=== PATIENT | female | born 1975 | race African-American/Black ===

== ENCOUNTER 2024-09-30 10:15 | Inpatient (IN) | payer MEDICAID ==
[~2024-09-30] VITALS: Ht 154.9 cm; Wt 80.0 kg
--- NOTE | 2024-09-30 10:45 | ECG ---
[facility] Test Date: 2024-09-30 Test Time: 10:44:47 Pat Name: KATY MIKE Department: er Room: [address] [place] [address] Gender: F Moto Mix Operator: gp : 1975 Requested By: EMILY VALDEZ Order Number: [id number] Reading MD: Familia Lopez Measurements Intervals [place] Rate: 106 P: 63 AL: 97 QRS: 58 QRSD: 73 T: -18 QT: 351 QTc: 467 Interpretive Statements Sinus tachycardia Borderline repolarization abnormality Electronically Signed On 10-03-2024 17:22:14 PST by Familia Lopez Please click the below link to view image of tracing.
--- NOTE | 2024-09-30 10:51 | ED.PDOC ---
History of Present Illness HPI Comments 48-year-old female presents with a chief complaint of blurred vision, tingling, and hypertension x 3 days. Patient states that her BP was 174/129 at home and after not taking her HTN medication for x 3 years decided to take them after the onset of her symptoms. Patient mentions that she has been feeling jittery, tingling in her hands and eyes, and her vision has been somewhat blurred. Patient denies any headache or lightheadedness. BP in triage was 167/107. 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 Family History Family History: Reviewed,noncontributory to illness Social History Smoker: Non-Smoker Alcohol: Denies ETOH Use Drugs: Denies Drug Use Constitutional: denies: chills, diaphoresis, fatigue, fever, malaise, sweats, weakness, others EENTM: reports: blurred vision; denies: double vision, ear bleeding, ear discharge, ear drainage, ear pain, ear ringing, eye pain, eye redness, hearing loss, mouth pain, mouth swelling, nasal discharge, nose bleeding, nose congestion, nose pain, photophobia, tearing, throat pain, throat swelling, voice changes, others Respiratory: denies: cough, hemoptysis, orthopnea, SOB at rest, shortness of breath, SOB with excertion, stridor, wheezing, others Cardiovascular: denies: chest pain, dizzy spells, diaphoresis, Dyspnea on exertion, edema, irregular heart beat, left arm pain, lightheadedness, palpitations, PND, syncope, others Gastrointestinal: denies: abdomen distended, abdominal pain, blood streaked bowels, constipated, diarrhea, dysphagia, difficulty swallowing, hematemesis, melena, nausea, poor appetite, poor fluid intake, rectal bleeding, rectal pain, vomiting, others Genitourinary: denies: abnormal vagina bleeding, burning, dyspareunia, dysuria, flank pain, frequency, hematuria, incontinence, pain, , vagina discharge, urgency, others Neurological: reports: tingling; denies: dizziness, fainting, headache, left sided numbness, left sided weakness, numbness, paresthesia, pre-existing deficit, right sided numbness, right sided weakness, seizure, speech problems, tremors, weakness, others Musculoskeletal: denies: back pain, gout, joint pain, joint swelling, muscle pain, muscle stiffness, neck pain, others Integumetry: denies: bruises, change in color, change in hair/nails, dryness, laceration, lesions, lumps, rash, wounds, others Allergic/Immunocompromised: denies: Difficulty Healing, Frequent Infections, Hives, Itching, others Hematologic/Lymphatic: denies: anemia, blood clots, easy bleeding, easy bruising, swollen glands, others Endocrine: denies: excessive hunger, excessive sweating, excessive thirst, excessive urination, flushing, intolerance to cold, intolerance to heat, unexplained weight gain, unexplained weight loss, others Psychiatric: denies: anxiety, bipolar disorder, depression, hopeless, panic disorder, schizophrenia, sleepless, suicidal, others All Other Systems: Reviewed and Negative Physical Exam General Appearance: No Apparent Distress, Normal HEENT: Normal ENT Inspection, Pharynx Normal, TMs Normal Neck: Full Range of Motion, Non-Tender, Normal, Normal Inspection Respiratory: Chest Non-Tender, Lungs Clear, No Accessory Muscle Use, No Respiratory Distress, Normal Breath Sounds Cardiovascular: No Edema, No JVD, No Murmur, No Gallop, Normal Peripheral Pulses, Regular Rate/Rhythm Breast Exam: Deferred Gastrointestinal: No Organomegaly, Non Tender, No Pulsatile Mass, Normal Bowel Sounds, Soft Genitalia: Deferred Pelvic: Deferred Rectal: Deferred Extremities: No calf tenderness, Normal capillary refill, Normal inspection, Normal range of motion, Non-tender, No pedal edema Musculoskeletal : Apperance: Normal Neurologic: Alert, senior oracle pl sql developer II-XII nml as Tested, No Motor Deficits, Normal Affect, Normal Mood, No Sensory Deficits Cerebellar Function: Normal Reflexes: Normal Skin: Dry, Normal Color, Warm Lymphatic: No Adenopathy Was a procedure done? Was a procedure done?: No Differential Dx Considerations may include: Hypertensive urgency, ACS, electrolyte abnormality, urinary tract infection, hypertensive urgency X-Ray, Labs, Meds, VS Vital Signs Date Time Temp Pulse Resp B/P (MAP) Pulse Ox O2 Delivery O2 Flow Rate FiO2 09/30/24 12:15 98.2 101 17 139/100 (113) 100 98.2 09/30/24 11:30 17 Room Air* 0 21 09/30/24 10:44 106 09/30/24 10:30 98.3 99 18 167/107 (127) 97 167/107 (127) Lab Test 09/30/24 11:48 09/30/24 10:50 09/30/24 10:38 Range/Units Troponin I High Sensitivity < 3 L < 3 L </=34 ng/L White Blood Count 4.8 4.4-10.8 10^3/uL Red Blood Count 4.20 4.0-5.20 10^6/uL Hemoglobin 11.9 L 12.2-16.2 g/dL Hematocrit 36.6 36.0-46.0 % Mean Corpuscular Volume 87.2 80.0-100.0 fL Mean Corpuscular Hemoglobin 28.3 28.0-32.0 pg Mean Corpuscular Hemoglobin Concent 32.5 32.0-36.0 g/dL Red Cell Distribution Width 17.0 H 11.8-14.3 % Platelet Count 412 140-450 10^3/uL Mean Platelet Volume 6.9 6.9-10.8 fL Neutrophils (%) (Auto) 51.0 37.0-80.0 % Lymphocytes (%) (Auto) 30.3 10.0-50.0 % Monocytes (%) (Auto) 12.6 H 0.0-12.0 % Eosinophils (%) (Auto) 4.7 0.0-7.0 % Basophils (%) (Auto) 1.4 0.0-2.0 % Neutrophils # (Auto) 2.5 1.6-8.6 10 ^3/uL Lymphocytes # (Auto) 1.5 0.4-5.4 10 ^3/uL Monocytes # (Auto) 0.6 0-1.3 10 ^3/uL Eosinophils # (Auto) 0.2 0-0.8 10 ^3/uL Basophils # (Auto) 0.1 0-0.2 10 ^3/uL Nucleated Red Blood Cells 0.2 % Sodium Level 138 136-145 mmol/L Potassium Level 4.0 3.5-5.1 mmol/L Chloride Level 104 98-107 mmol/L Carbon Dioxide Level 26 20-31 mmol/L Anion Gap 8 5-15 Blood Urea Nitrogen 10 9-23 mg/dL Creatinine 0.86 0.550-1.02 mg/dL Glomerular Filtration Rate Calc 84 >90 mL/min BUN/Creatinine Ratio 11.6 10.0-20.0 Serum Glucose 103 74-106 mg/dL Calcium Level 9.9 8.7-10.4 mg/dL Magnesium Level 2.0 1.6-2.6 mg/dL Urine Color Colorless Yellow Urine Clarity Turbid H Clear Urine pH 6.0 5.0-9.0 Urine Specific [place] 1.013 1.001-1.035 Urine Protein Negative Negative Urine Ketones Negative Negative Urine Blood Negative Negative /uL Urine Nitrite Negative Negative Urine Bilirubin Negative Negative Urine Urobilinogen Normal Negative mg/dL Urine Leukocyte Esterase Negative Negative /uL Urine RBC 1 0 - 4 /hpf Urine WBC 3 0 - 5 /hpf Urine Squamous Epithelial Cells Few <5 /hpf Urine Bacteria Few H None Seen /hpf Urine Glucose Normal Normal mg/dL Urine Test Negative Negative Time of 1ST Reevaluation: 11:05 Reevaluation 1ST: Unchanged Patient Education/Counseling: Diagnosis, Treatment, Prognosis Family Education/Counseling: No Family Present Departure 1 Departure Time of Disposition: 13:55 (Patient presented with hypertension and symptoms concerning for hypertensive emergency. Patient is receiving iv blood pressure medications requiring intensive monitoring. Data: 1. I ordered and reviewed the result of at least 3 labs including a CBC, BMP, and Urinalysis. 2. I independently interpreted the following tests: CT Brain: Which appears benign. EKG which is Normal Sinus RhythmRisk:This patient has a high risk of morbidity due to further diagnostic testing or treatment and may suffer from an acute cardiac disorder. Workup reveals hypertensive emergency and patient should be admitted for further workup. and possible expert consultation. ) Impression: Primary Impression: Hypertensive urgency Additional Impression: Dizziness Disposition: ADMITTED INPATIENT Admit to: Med Surg Condition: Serious Critical Care Note Critical Care Time?: Yes Critical care comment: Hypertensive urgency Authorized and Performed by: Emily Reese MD Total critical care time: Approximately 33 minutes Due to a high probability of clinically significant, life threatening deterioration, the patient required my highest level of preparedness to intervene emergently and I personally spent this critical care time directly and personally managing the patient. This critical care time included obtaining a history; examining the patient; pulse oximetry; ordering and review of studies; arranging urgent treatment with development of a management plan; evaluation of patient's response to treatment; frequent reassessment; and, discussions with other providers. This critical care time was performed to assess and manage the high probability of imminent, life-threatening deterioration that could result in multi-organ failure. It was exclusive of separately billable procedures and treating other patients and teaching time. Please see my other sections and the rest of the note for further information on patient assessment and treatment. Stability Stability form required: No I personally scribed for EMILY REESE MD ([email or web address]) on 09/30/24 at 10:51. Electronically submitted by Mulugeta Webster ([email or web address]). EMILY REESE MD Sep 30, 2024 10:51
[2024-09-30 11:15] LABS: Basophils # (auto) 0.1 10 ^3/uL (0-0.2); Basophils % (auto) 1.4 % (0.0-2.0); Eosinophils # (auto) 0.2 10 ^3/uL (0-0.8); Eosinophils % (auto) 4.7 % (0.0-7.0); Hematocrit 36.6 % (36.0-46.0); Hemoglobin 11.9 g/dL (12.2-16.2); Lymphocytes # (auto) 1.5 10 ^3/uL (0.4-5.4); Lymphocytes % (auto) 30.3 % (10.0-50.0); Mean Corpuscular Hemoglobin 28.3 pg (28.0-32.0); Mean Corpuscular Hgb Conc. 32.5 g/dL (32.0-36.0); Mean Corpuscular Volume 87.2 fL (80.0-100.0); Monocytes # (auto) 0.6 10 ^3/uL (0-1.3); Monocytes % (auto) 12.6 % (0.0-12.0); Neutrophils # (auto) 2.5 10 ^3/uL (1.6-8.6); Nucleated Red Blood Cells % 0.2 %; Platelet Count (auto) 412 10^3/uL (140-450); White Blood Cell 4.8 10^3/uL (4.4-10.8)
[2024-09-30 11:30] VITALS: RESP 17
[2024-09-30 11:38] LABS: Anion Gap 8 (5-15); Carbon Dioxide 26 mmol/L (20-31); Chloride 104 mmol/L (98-107); Sodium 138 mmol/L (136-145)
[2024-09-30 11:39] LABS: Calcium 9.9 mg/dL (8.7-10.4)
[2024-09-30 11:43] LABS: Glucose 103 mg/dL (74-106)
[2024-09-30 11:44] LABS: BUN/Creatinine Ratio 11.6 (10.0-20.0); Blood Urea Nitrogen 10 mg/dL (9-23)
[2024-09-30 12:43] LABS: Urine Bacteria FEW /hpf (None Seen); Urine Blood Negative /uL (Negative); Urine Clarity Turbid (Clear); Urine Color Colorless (Yellow); Urine Protein, UAD Negative (Negative); Urine Specific Gravity 1.013 (1.001-1.035); Urine Urobilinogen Normal (Negative); Urine WBC 3 /hpf (0 - 5)
--- NOTE | 2024-09-30 13:10 | DVH ---
XY CHEST TWO VIEWS ROUTINE CLINICAL HISTORY: chest pain COMPARISON: None TECHNIQUE: Frontal and lateral view of the chest was obtained FINDINGS: Lines and Tubes: None Lungs: No focal consolidation. Pleura: No effusion. No pneumothorax. Cardiomediastinal contours: Unremarkable Bones: No acute osseous abnormality. IMPRESSION: No acute cardiopulmonary disease.
[2024-09-30] MEDS ORDERED: hydrALAZINE HCL 20 MG/ML VL IV ONE (14:00)
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
[2024-09-30] MEDS ORDERED: HYDR25TA5 GT (14:41)
[2024-09-30] MEDS: cloNIDine HCL 0.1 MG TAB PO ONE (14:48)
--- NOTE | 2024-09-30 14:52 | DVH ---
CT HEAD WITHOUT CONTRAST INDICATION: [facility] EXAM DATE: 09/30/2024 02:12 PM COMPARISON: None RADIATION DOSE: CTDIvol: 67 mGy, DLP: 1337 mGy*cm PROCEDURE: CT scans of the head were obtained from the vertex to the skull base. Sagittal and coronal reconstructions were provided. All CT scans at this medical facility are performed using dose modulation techniques as appropriate t o a performed exam including the following: Automated exposure control was utilized; adjustment of th e MA and/or KV according to patient size; and use of iterative reconstruction technique. FINDINGS: There is sulcal and ventricular prominence. The brain otherwise shows normal morphology a nd altamirano-white matter differentiation, without intracranial hemorrhage, extra-axial fluid collection, mass effect or acute large vessel infarct.The basal cisterns are patent. The skull and visible facial bones are intact. The paranasal sinuses, mastoid air cells and middle ear cavities are well-aerated. The soft tissues of the scalp are unremarkable. IMPRESSION: No acute intracranial abnormality.
[2024-09-30] MEDS ORDERED: hydrALAZINE HCL 20 MG/ML VL IV PRN (15:00)
[2024-09-30] MEDS ORDERED: ACETAMINOPHEN 325 MG TAB PO PRN (15:00)
[2024-09-30] MEDS ORDERED: DOCUSATE SOD 100 MG CAP PO PRN (15:00)
[2024-09-30] MEDS: HYDROcodone-ACET 5/325MG TAB PO PRN (15:45)
[2024-10-01] MEDS: SODIUM CHLOR 0.9% PF (SALINE LOCK) 10ML VIAL/SYR IV SCH (00:02)
[2024-10-01] MEDS: ONDANSETRON HCL 4 MG/2 ML VIAL IV PRN (02:08)
[2024-10-01] MEDS: MORPHINE SULFATE INJ 2 MG/ml SYRG IV PRN (02:09)
[2024-10-01] MEDS ORDERED: NIFEdipine ER 30 MG TAB PO ONE (11:00)
[2024-10-01 11:40] LABS: Basophils # (auto) 0.1 10 ^3/uL (0-0.2); Basophils % (auto) 1.1 % (0.0-2.0); Eosinophils # (auto) 0.3 10 ^3/uL (0-0.8); Eosinophils % (auto) 5.2 % (0.0-7.0); Hematocrit 35.8 % (36.0-46.0); Hemoglobin 11.4 g/dL (12.2-16.2); Lymphocytes # (auto) 1.7 10 ^3/uL (0.4-5.4); Lymphocytes % (auto) 29.1 % (10.0-50.0); Mean Corpuscular Hemoglobin 28.4 pg (28.0-32.0); Mean Corpuscular Volume 88.9 fL (80.0-100.0); Monocytes # (auto) 0.8 10 ^3/uL (0-1.3); Monocytes % (auto) 12.8 % (0.0-12.0); Neutrophils # (auto) 3.1 10 ^3/uL (1.6-8.6); Neutrophils % (auto) 51.8 % (37.0-80.0); Nucleated Red Blood Cells % 0.1 %; Platelet Count (auto) 394 10^3/uL (140-450); Red Blood Cells 4.03 10^6/uL (4.0-5.20); Red Cell Distribution Width 16.9 % (11.8-14.3); White Blood Cell 5.9 10^3/uL (4.4-10.8)
[2024-10-01 11:58] LABS: Alanine Aminotransferase 19 U/L (7-40); Albumin 4.2 g/dL (3.2-4.8); Alkaline Phosphatase 55 U/L (46-116); Anion Gap 5 (5-15); Aspartate Aminotransferase 18 U/L (13-40); BUN/Creatinine Ratio 13.3 (10.0-20.0); Blood Urea Nitrogen 11 mg/dL (9-23); Calcium 9.6 mg/dL (8.7-10.4); Carbon Dioxide 28 mmol/L (20-31); Chloride 104 mmol/L (98-107); Glucose 106 mg/dL (74-106); Potassium 3.8 mmol/L (3.5-5.1); Sodium 137 mmol/L (136-145)
[2024-10-01 11:59] LABS: Total Protein 7.1 g/dL (5.7-8.2)
[2024-10-01 13:15] LABS: Bilirubin, Total 0.5 mg/dL (0.2-1.0)
[2024-10-01] MEDS ORDERED: NIFE1TAB31 PO (14:20)
[2024-10-01 16:09] VITALS: BP 121/75; PULSE 89; RESP 16; TEMP 97.8; O2SAT 99
[2024-10-01 16:36] VITALS: BP 121/75; PULSE 89; RESP 16; TEMP 97.8; O2SAT 99
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
[2024-10-02] MEDS ORDERED: hydroCHLOROthiazide 25 MG TAB PO SCH (10:00)
[2024-10-02] MEDS ORDERED: NIFEdipine ER 30 MG TAB PO SCH (10:00)
== END 2024-10-01 16:34 | disposition home or self-care (01) | DRG 199 ==
LOC: ER 10:15 → OVERFLOW 14:48
PROVIDERS: ADMIT Student in an Organized Health Care Education/Training Program; ATTEND Student in an Organized Health Care Education/Training Program
DX: I16.0 Hypertensive urgency (principal); E66.9 Obesity, unspecified; Z90.49 Acquired absence of other specified parts of digestive tract; Z98.84 Bariatric surgery status; Z68.33 Body mass index [BMI] 33.0-33.9, adult; Z79.899 Other long term (current) drug therapy
CPT/HCPCS: 36415; 70450; 71046; 80048; 80053; 81001; 81025; 83735; 84443; 84484; 85025; 93005; 99291; G0378; J2405

== ENCOUNTER 2024-10-14 12:41 | Emergency (ER) | payer MEDICAID ==
[~2024-10-14] VITALS: Ht 154.9 cm; Wt 80.0 kg
[~2024-10-14 12:41] MED LIST: NIFE1TAB31 PO
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
[2024-10-14 13:38] VITALS: PULSE 116; RESP 20; O2SAT 99
[2024-10-14] MEDS: HYDROcodone-ACET 5/325MG TAB PO ONE (13:39)
[2024-10-14] MEDS ORDERED: IBUP-1454 PO (14:54)
[2024-10-14 15:17] VITALS: BP 118/76; PULSE 93; RESP 20; TEMP 98.2; O2SAT 100
== END 2024-10-14 15:17 | disposition home or self-care (01) ==
LOC: ER 12:41
DX: M13.872 Other specified arthritis, left ankle and foot (principal); M79.672 Pain in left foot; Z79.1 Long term (current) use of non-steroidal anti-inflammatories (NSAID); Z79.899 Other long term (current) drug therapy
CPT/HCPCS: 73630

== ENCOUNTER 2025-02-12 10:39 | Emergency (ER) | payer MEDICAID ==
[~2025-02-12] VITALS: Ht 154.9 cm; Wt 88.8 kg
[~2025-02-12 10:39] MED LIST changes: +IBUP-1454 PO
[2025-02-12 11:13] VITALS: BP 138/88; PULSE 104; RESP 18; TEMP 98.3; O2SAT 99
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
[2025-02-12 11:22] LABS: Urine Bacteria FEW /hpf (None Seen); Urine Blood TRACE /uL (Negative); Urine Clarity Turbid (Clear); Urine Color Colorless (Yellow); Urine Hyaline Cast FEW /lpf (0 - 2); Urine Mucus FEW (None Seen); Urine Protein, UAD 1+ (Negative); Urine Squamous Epithelial Cell FEW /hpf (<5); Urine Urobilinogen Normal (Negative); Urine WBC 399 /HPF (0-5)
[2025-02-12] MEDS: HYDROcodone-ACET 5/325MG TAB PO ONE (11:25)
[2025-02-12] MEDS ORDERED: CIPR-173 PO (11:31)
== END 2025-02-12 11:39 | disposition home or self-care (01) ==
LOC: ER 10:39
DX: N39.0 Urinary tract infection, site not specified (principal); I10 Essential (primary) hypertension; Z90.49 Acquired absence of other specified parts of digestive tract; Z79.899 Other long term (current) drug therapy; Z79.1 Long term (current) use of non-steroidal anti-inflammatories (NSAID)
CPT/HCPCS: 81001

== ENCOUNTER 2025-04-11 15:42 | Emergency (ER) | payer MEDICAID ==
[~2025-04-11] VITALS: Ht 152.4 cm; Wt 89.6 kg
[~2025-04-11 15:42] MED LIST changes: +CIPR-173 PO
[2025-04-11] MEDS: KETOROLAC TROMETH 30 MG/ML 1ML VIAL IM ONE (17:31)
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
[2025-04-11 18:09] LABS: Basophils # (auto) 0.1 10 ^3/uL (0-0.2); Eosinophils # (auto) 0.1 10 ^3/uL (0-0.8); Eosinophils % (auto) 2.3 % (0.0-7.0); Hematocrit 33.5 % (36.0-46.0); Hemoglobin 10.9 g/dL (12.2-16.2); Lymphocytes # (auto) 2.1 10 ^3/uL (0.4-5.4); Lymphocytes % (auto) 35.8 % (10.0-50.0); Mean Corpuscular Hemoglobin 30.2 pg (28.0-32.0); Mean Corpuscular Hgb Conc. 32.6 g/dL (32.0-36.0); Mean Corpuscular Volume 92.7 fL (80.0-100.0); Monocytes # (auto) 0.7 10 ^3/uL (0-1.3); Monocytes % (auto) 11.6 % (0.0-12.0); Neutrophils # (auto) 2.8 10 ^3/uL (1.6-8.6); Neutrophils % (auto) 49.3 % (37.0-80.0); Nucleated Red Blood Cells % 0.1 %; Platelet Count (auto) 434 10^3/uL (140-450); Red Blood Cells 3.62 10^6/uL (4.0-5.20); Red Cell Distribution Width 14.6 % (11.8-14.3); White Blood Cell 5.7 10^3/uL (4.4-10.8)
--- NOTE | 2025-04-11 18:40 | DVH ---
INDICATION: pelvic pain, irregular menses TECHNIQUE: Multiple real-time grayscale transabdominal sonographic images along with color and duplex Doppler of the uterus and ovaries were obtained. COMPARISON: None FINDINGS: The uterus measures 9.6 x 5.7 by 4.5 cm cm. The endometrial stripe measures 1.5 mm cm. The right ovary not visualized. The left ovary not visualized IMPRESSION: 1. Grossly unremarkable pelvic ultrasound.
[2025-04-11] MEDS ORDERED: MEDR5TAB28 PO (19:17)
[2025-04-11 19:54] VITALS: BP 152/96; PULSE 97; RESP 18; TEMP 98.9; O2SAT 99
== END 2025-04-11 20:00 | disposition home or self-care (01) ==
LOC: ER 15:42
DX: N92.1 Excessive and frequent menstruation with irregular cycle (principal); Z90.49 Acquired absence of other specified parts of digestive tract; Z98.890 Other specified postprocedural states
CPT/HCPCS: 36415; 76856; 81025; 85025; 96372; 99285; J1885

== ENCOUNTER 2025-04-15 20:07 | Emergency (ER) | payer MEDICAID ==
[~2025-04-15] VITALS: Ht 152.4 cm; Wt 87.9 kg
[~2025-04-15 20:07] MED LIST changes: +MEDR5TAB28 PO
[2025-04-15 20:38] LABS: Basophils # (auto) 0.3 10 ^3/uL (0-0.2); Eosinophils # (auto) 0.3 10 ^3/uL (0-0.8); Eosinophils % (auto) 5.7 % (0.0-7.0); Hematocrit 33.1 % (36.0-46.0); Lymphocytes # (auto) 1.4 10 ^3/uL (0.4-5.4); Mean Corpuscular Hgb Conc. 33.1 g/dL (32.0-36.0); Mean Corpuscular Volume 90.4 fL (80.0-100.0); Monocytes # (auto) 0.5 10 ^3/uL (0-1.3); Monocytes % (auto) 9.2 % (0.0-12.0); Neutrophils # (auto) 2.8 10 ^3/uL (1.6-8.6); Neutrophils % (auto) 53.1 % (37.0-80.0); Nucleated Red Blood Cells % 0.1 %; Platelet Count (auto) 444 10^3/uL (140-450); Red Blood Cells 3.66 10^6/uL (4.0-5.20); Red Cell Distribution Width 14.4 % (11.8-14.3); White Blood Cell 5.3 10^3/uL (4.4-10.8)
[2025-04-15 20:48] LABS: Potassium 3.7 mmol/L (3.5-5.1); Sodium 142 mmol/L (136-145)
[2025-04-15 20:49] LABS: Anion Gap 8 (5-15); Calcium 9.1 mg/dL (8.7-10.4); Carbon Dioxide 24 mmol/L (20-31)
[2025-04-15 20:49] LABS: Urine Bacteria None Seen /hpf (None Seen)
[2025-04-15 20:54] LABS: BUN/Creatinine Ratio 9.9 (10.0-20.0); Glucose 102 mg/dL (74-106)
[2025-04-15 20:55] LABS: INR 0.92 (0.9-1.15); Partial Thromboplastin Time 24.8 SEC (24.5-34.5); Prothrombin Time 9.8 sec (9.3-11.8)
--- NOTE | 2025-04-15 21:10 | ED.PDOC ---
MACHINING DEPARTMENT SUPERVISOR HPI Comments 49 year old female presents to the ED with a chief complaint of heavy vaginal bleeding onset 03/28/25. Patient states she began her menstrual cycle on 03/28/25, since then has been experiencing vaginal bleeding, first 2 weeks were light bleeding. She noticed this past week, bleeding has been heavier, clotted and began experiencing suprapubic pain described as a "tearing" sensation. She was seen in this ED on 04/11/25, was prescribed Provera, has not noticed improvement of symptoms. Denies any PMHx as well as nausea, vomiting, diarrhea, chest pain, shortness of breath, dysuria, fever, chills. No other symptoms or modifying factors present at this time. Chief Complaint: Vaginal Bleed Time Seen by MD: 20:50 Reviewed Notes: Medications, Allergies Allergies: Coded Allergies: NO KNOWN ALLERGIES (Unverified , 02/04/24) Home Meds Active Scripts Gabapentin (Once-Daily) (Gabapentin) 300 Mg Tab, 300 MG PO Q6HP PRN, #30 TAB Prov:BRE DICKEY MD 04/16/25 Norgestrel & Ethinyl Estradiol (Low-Ogestrel 0.3-30 mg-Mcg) 1 Tab Tab, 1 TAB PO DAILY for 90 Days, #90 TAB 3 Refills Prov:BRE DICKEY MD 04/15/25 Sulfamethoxazole W/Trimethopri (Bactrim Ds Tablet) 1 Tab Tb, 1 TAB PO BID for 7 Days, #14 TAB Prov:BRE DICKEY MD 04/15/25 Medroxyprogesterone Acetate (PROVERA) 5 Mg Tab, 2 TAB PO DAILY, #3 TAB 11 Refills Prov:SHANE RAHMAN MD 04/11/25 Ciprofloxacin Hcl (Cipro) 500 Mg Tab, 1 TAB PO BID, #20 TAB Prov:SAMANTHA RESTREPO MD 02/12/25 Ibuprofen (Ibuprofen) 600 Mg Tab, 600 MG PO TID for 30 Days, #90 TAB 0 Refills Prov:SAIRA SCHROEDER DIRECTOR CLINICAL PHARMACOLOGY 10/14/24 Nifedipine (Nifedipine Er) 30 Mg Tab, 1 TAB PO DAILY for 30 Days, #30 TAB 1 Refill Prov:PATRICK HERNANDEZ RESIDENT 10/01/24 Information Source: Patient Mode of Arrival: Ambulatory Timing: Weeks Prehospital treatment: None Severity: Moderate Vaginal Discharge: None Vaginal Lesions: None Bleeding Quality: Bright Red, Clotted Onset Of Mass/Bleeding: Menstrual Last Consensual [place]oven[place] Life: Unknown Control: None Associated Signs and Symptoms: Vaginal Bleeding, Abdominal Pain Past Medical History PAST MEDICAL HISTORY: Denies Surgical History: Cholecystectomy, , Hernia Repair HOMEBOUND TEACHER History: No Pertinent HOMEBOUND TEACHER History Family History Family History: Reviewed,noncontributory to illness Social History Smoker: Non-Smoker Alcohol: Denies ETOH Use Drugs: Denies Drug Use Lives In: Home Constitutional: denies: chills, diaphoresis, fatigue, fever, malaise, sweats, weakness, others EENTM: denies: blurred vision, double vision, ear bleeding, ear discharge, ear drainage, ear pain, ear ringing, eye pain, eye redness, hearing loss, mouth pain, mouth swelling, nasal discharge, nose bleeding, nose congestion, nose pain, photophobia, tearing, throat pain, throat swelling, voice changes, others Respiratory: denies: cough, hemoptysis, orthopnea, SOB at rest, shortness of breath, SOB with excertion, stridor, wheezing, others Gastrointestinal: reports: abdominal pain; denies: abdomen distended, blood streaked bowels, constipated, diarrhea, dysphagia, difficulty swallowing, hematemesis, melena, nausea, poor appetite, poor fluid intake, rectal bleeding, rectal pain, vomiting, others Genitourinary: reports: abnormal vagina bleeding; denies: burning, dyspareunia, dysuria, flank pain, frequency, hematuria, incontinence, pain, , vagina discharge, urgency, others Neurological: denies: dizziness, fainting, headache, left sided numbness, left sided weakness, numbness, paresthesia, pre-existing deficit, right sided numbness, right sided weakness, seizure, speech problems, tingling, tremors, weakness, others Musculoskeletal: denies: back pain, gout, joint pain, joint swelling, muscle pain, muscle stiffness, neck pain, others Integumetry: denies: bruises, change in color, change in hair/nails, dryness, laceration, lesions, lumps, rash, wounds, others Allergic/Immunocompromised: denies: Difficulty Healing, Frequent Infections, Hives, Itching, others Hematologic/Lymphatic: denies: anemia, blood clots, easy bleeding, easy bruising, swollen glands, others Endocrine: denies: excessive hunger, excessive sweating, excessive thirst, excessive urination, flushing, intolerance to cold, intolerance to heat, unexp lained weight gain, unexplained weight loss, others Psychiatric: denies: anxiety, bipolar disorder, depression, hopeless, panic disorder, schizophrenia, sleepless, suicidal, others All Other Systems: Reviewed and Negative Physical Exam General Appearance: No Apparent Distress, Normal HEENT: Normal ENT Inspection, Pharynx Normal, TMs Normal Neck: Full Range of Motion, Non-Tender, Normal, Normal Inspection Respiratory: Chest Non-Tender, Lungs Clear, No Accessory Muscle Use, No Respiratory Distress, Normal Breath Sounds Cardiovascular: No Edema, No JVD, No Murmur, No Gallop, Normal Peripheral Pulse s, Regular Rate/Rhythm Breast Exam: Deferred Gastrointestinal: No Organomegaly, Non Tender, No Pulsatile Mass, Normal Bowel Sounds, Soft Genitalia: Deferred Pelvic: Deferred Rectal: Deferred Extremities: No calf tenderness, Normal capillary refill, Normal inspection, Normal range of motion, Non-tender, No pedal edema Musculoskeletal : Apperance: Normal Neurologic: Alert, pathology technician II-XII nml as Tested, No Motor Deficits, Normal Affect, Normal Mood, No Sensory Deficits Cerebellar Function: Normal Reflexes: Normal Skin: Dry, Normal Color, Warm Lymphatic: No Adenopathy Was a procedure done? Was a procedure done?: No Differential Diagnosis (HOMEBOUND TEACHER) Vaginal Bleeding: Dysmenorrhea, Menometrorrhagia, Menstrual Bleeding, Myomatous Uterus, PID, Trauma, UTI, Vaginitis, Other X-Ray, Labs, Meds, VS Vital Signs Date Time Temp Pulse Resp B/P (MAP) Pulse Ox O2 Delivery O2 Flow Rate FiO2 04/15/25 20:30 97.1 113 16 145/93 (110) 97 97.1 Lab Test 04/15/25 20:48 04/15/25 20:21 Range/Units Urine Color Light-red Yellow Urine Clarity Ex.turbid Clear Urine pH 5.5 5.0-9.0 Urine Specific [place] 1.027 1.001-1.035 Urine Protein 1+ H Negative Urine Ketones Trace Negative Urine Blood 3+ H Negative /uL Urine Nitrite Negative Negative Urine Bilirubin Negative Negative Urine Urobilinogen Normal Negative mg/dL Urine Leukocyte Esterase 2+ Negative /uL Urine RBC 9698 0 - 4 /hpf Urine Microscopic WBC 76 H 0-5 /HPF Urine Squamous Epithelial Cells None seen <5 /hpf Urine Bacteria None seen None Seen /hpf Urine Mucus Few None Seen Urine Glucose Normal Normal mg/dL Urine Test Negative Negative White Blood Count 5.3 4.4-10.8 10^3/uL Red Blood Count 3.66 L 4.0-5.20 10^6/uL Hemoglobin 11.0 L 12.2-16.2 g/dL Hematocrit 33.1 L 36.0-46.0 % Mean Corpuscular Volume 90.4 80.0-100.0 fL Mean Corpuscular Hemoglobin 30.0 28.0-32.0 pg Mean Corpuscular Hemoglobin Concent 33.1 32.0-36.0 g/dL Red Cell Distribution Width 14.4 H 11.8-14.3 % Platelet Count 444 140-450 10^3/uL Mean Platelet Volume 6.7 L 6.9-10.8 fL Neutrophils (%) (Auto) 53.1 37.0-80.0 % Lymphocytes (%) (Auto) 27.0 10.0-50.0 % Monocytes (%) (Auto) 9.2 0.0-12.0 % Eosinophils (%) (Auto) 5.7 0.0-7.0 % Basophils (%) (Auto) 5.0 H 0.0-2.0 % Neutrophils # (Auto) 2.8 1.6-8.6 10 ^3/uL Lymphocytes # (Auto) 1.4 0.4-5.4 10 ^3/uL Monocytes # (Auto) 0.5 0-1.3 10 ^3/uL Eosinophils # (Auto) 0.3 0-0.8 10 ^3/uL Basophils # (Auto) 0.3 H 0-0.2 10 ^3/uL Nucleated Red Blood Cells 0.1 % Platelet Estimate Adequate Anisocytosis (manual) Slight Prothrombin Time 9.8 9.3-11.8 sec Prothrombin Time INR 0.92 0.9-1.15 Activated Partial Thromboplast Time 24.8 24.5-34.5 SEC Sodium Level 142 136-145 mmol/L Potassium Level 3.7 3.5-5.1 mmol/L Chloride Level 110 H 98-107 mmol/L Carbon Dioxide Level 24 20-31 mmol/L Anion Gap 8 5-15 Blood Urea Nitrogen 8 L 9-23 mg/dL Creatinine 0.81 0.550-1.02 mg/dL Glomerular Filtration Rate Calc 90 >90 mL/min BUN/Creatinine Ratio 9.9 L 10.0-20.0 Serum Glucose 102 74-106 mg/dL Calcium Level 9.1 8.7-10.4 mg/dL Current Medications Medications (Trade) Dose Ordered Sig/Finn Route Start Time Stop Time Status Last Admin Acetaminophen/ Hydrocodone Bitart ([place] 5/325MG Tab) 1 tab ONCE ONCE PO 04/15/25 22:15 04/15/25 22:16 DC 04/15/25 22:15 Time of 1ST Reevaluation: 21:20 Reevaluation 1ST: Unchanged Patient Education/Counseling: Diagnosis, Treatment, Prognosis Family Education/Counseling: No Family Present Departure 1 Departure Time of Disposition: 23:30 Impression: Primary Impression: Dysfunctional uterine bleeding Additional Impressions: Hypertensive urgency UTI (urinary tract infection) Disposition: HOME / SELF CARE / HOMELESS Condition: Stable e-Prescriptions Gabapentin (Once-Daily) (Gabapentin) 300 Mg Tab 300 MG PO Q6HP PRN, #30 TAB Prov: BRE DICKEY MD 04/16/25 Norgestrel & Ethinyl Estradiol (Low-Ogestrel 0.3-30 mg-Mcg) 1 Tab Tab 1 TAB PO DAILY for 90 Days, #90 TAB 3 Refills Prov: BRE DICKEY MD 04/15/25 Sulfamethoxazole W/Trimethopri (Bactrim Ds Tablet) 1 Tab Tb 1 TAB PO BID for 7 Days, #14 TAB Prov: BRE DICKEY MD 04/15/25 Discharged With: Self Critical Care Note Critical Care Time?: No Stability Stability form required: No I personally scribed for BRE DICKEY MD ([email or web address]) on 04/15/25 at 21:09. Electronically submitted by Argenis Douglass ([email or web address]). BRE DICKEY MD Apr 15, 2025 21:09
[2025-04-15 21:26] LABS: Blood Urea Nitrogen 8 mg/dL (9-23); Chloride 110 mmol/L (98-107)
[2025-04-15 21:31] LABS: Urine Blood 3+ /uL (Negative); Urine Clarity Ex.Turbid (Clear); Urine Color Light-Red (Yellow); Urine Mucus FEW (None Seen); Urine Protein, UAD 1+ (Negative); Urine Specific Gravity 1.027 (1.001-1.035); Urine Squamous Epithelial Cell None Seen /hpf (<5); Urine Urobilinogen Normal (Negative); Urine WBC 76 /HPF (0-5); Urine pH 5.5 (5.0-9.0)
[2025-04-15] MEDS ORDERED: NORG1TAB5 PO (22:04)
[2025-04-15] MEDS ORDERED: BACDST PO (22:04)
[2025-04-15] MEDS: HYDROcodone-ACET 5/325MG TAB PO ONE (22:15)
[2025-04-15 22:26] LABS: Anisocytosis Slight; Platelet Estimate Adequate
[2025-04-16 03:25] VITALS: BP 152/83; PULSE 82; RESP 16; TEMP 97.5; O2SAT 99
[2025-04-16] MEDS ORDERED: GABA300T4 PO (03:46)
[2025-04-16] MEDS ORDERED: IBUP-1456 PO (04:21)
[2025-04-16] MEDS: HYDROcodone-ACET 5/325MG TAB PO ONE (04:38)
== END 2025-04-16 04:32 | disposition home or self-care (01) ==
LOC: ER 20:07
DX: N93.8 Other specified abnormal uterine and vaginal bleeding (principal); I16.0 Hypertensive urgency; N39.0 Urinary tract infection, site not specified; Z90.49 Acquired absence of other specified parts of digestive tract; Z98.890 Other specified postprocedural states; Z79.899 Other long term (current) drug therapy; Z79.1 Long term (current) use of non-steroidal anti-inflammatories (NSAID)
CPT/HCPCS: 36415; 80048; 81001; 81025; 85025; 85610; 85730

== ENCOUNTER 2025-05-05 09:33 | Emergency (ER) | payer MEDICAID ==
[~2025-05-05] VITALS: Ht 154.9 cm; Wt 88.2 kg
[~2025-05-05 09:33] MED LIST changes: +BACDST PO; +GABA300T4 PO; +IBUP-1456 PO; +NORG1TAB5 PO
[2025-05-05 09:57] VITALS: TEMP 98.3
--- NOTE | 2025-05-05 10:29 | ED.PDOC ---
General HPI Comments This is a 49 year old female presenting to the ED with chief complaint of UTI symptoms. Patient reports that she has been experiencing dysuria with associated lower abdominal pressure, causing her to feel urgency when urinating. Patient states she has had previous UTIs. Patient denies any N/V/D, hematuria, flank pain, fever, or chills. Chief Complaint: Urinary Time Seen by MD: 10:27 Primary Care Provider: [facility] Reviewed notes: Nurses Notes, Medications, Allergies Allergies: Coded Allergies: NO KNOWN ALLERGIES (Unverified , 02/04/24) Home Meds Active Scripts Tramadol HCl (Tramadol HCl) 50 Mg Tab, 50 MG PO Q12HP PRN for 5 Days, #10 TAB Prov:SAMANTHA RESTREPO MD 05/05/25 Ciprofloxacin Hcl (Cipro) 500 Mg Tab, 1 TAB PO BID, #20 TAB Prov:SAMANTHA RESTREPO MD 05/05/25 Ibuprofen (Ibuprofen) 800 Mg Tab, 1 TAB PO TID PRN, #30 TAB 0 Refills Prov:BRE DICKEY MD 04/16/25 Gabapentin (Once-Daily) (Gabapentin) 300 Mg Tab, 300 MG PO Q6HP PRN, #30 TAB Prov:BRE DICKEY MD 04/16/25 Norgestrel & Ethinyl Estradiol (Low-Ogestrel 0.3-30 mg-Mcg) 1 Tab Tab, 1 TAB PO DAILY for 90 Days, #90 TAB 3 Refills Prov:BRE DICKEY MD 04/15/25 Sulfamethoxazole W/Trimethopri (Bactrim Ds Tablet) 1 Tab Tb, 1 TAB PO BID for 7 Days, #14 TAB Prov:BRE DICKEY MD 04/15/25 Medroxyprogesterone Acetate (PROVERA) 5 Mg Tab, 2 TAB PO DAILY, #3 TAB 11 R efills Prov:SHANE RAHMAN MD 04/11/25 Ibuprofen (Ibuprofen) 600 Mg Tab, 600 MG PO TID for 30 Days, #90 TAB 0 Refills Prov:SAIRA SCHROEDER PARTITION ASSEMBLY MACHINE OPERATOR 10/14/24 Nifedipine (Nifedipine Er) 30 Mg Tab, 1 TAB PO DAILY for 30 Days, #30 TAB 1 Refill Prov:PATRICK HERNANDEZ RESIDENT 10/01/24 Information Source: Patient Mode of Arrival: Ambulatory Severity: Moderate Inability to void: None Timing: Days Duration: Since onset Prehospital treatment: None Onset: Spontaneous Symptoms: Dysuria, Urgency History of: None Location: Suprapubic associated signs and symptoms: Abdominal Pain, Dysuria Past Medical History PAST MEDICAL HISTORY: Denies Surgical History: Cholecystectomy, , Hernia Repair 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 Pertinent ODD PIECE CHECKER History Family History Family History: Reviewed,noncontributory to illness, Family hx of DM, Family hx of HTN Social History Smoker: Non-Smoker Alcohol: Occasionally Drugs: Denies Drug Use Lives In: Home Constitutional: denies: chills, diaphoresis, fatigue, fever, malaise, sweats, weakness, others EENTM: denies: blurred vision, double vision, ear bleeding, ear discharge, ear drainage, ear pain, ear ringing, eye pain, eye redness, hearing loss, mouth pain, mouth swelling, nasal discharge, nose bleeding, nose congestion, nose pain, photophobia, tearing, throat pain, throat swelling, voice changes, others Respiratory: denies: cough, hemoptysis, orthopnea, SOB at rest, shortness of breath, SOB with excertion, stridor, wheezing, others Cardiovascular: denies: chest pain, dizzy spells, diaphoresis, Dyspnea on exertion, edema, irregular heart beat, left arm pain, lightheadedness, palpitations, PND, syncope, others Gastrointestinal: reports: others (Abdominal pressure); denies: abdomen distended, abdominal pain, blood streaked bowels, constipated, diarrhea, dysphagia, difficulty swallowing, hematemesis, melena, nausea, poor appetite, poor fluid intake, rectal bleeding, rectal pain, vomiting Genitourinary: reports: dysuria; denies: abnormal vagina bleeding, burning, dyspareunia, flank pain, frequency, hematuria, incontinence, pain, , vagina discharge, urgency, others Neurological: denies: dizziness, fainting, headache, left sided numbness, left sided weakness, numbness, paresthesia, pre-existing deficit, right sided numbness, right sided weakness, seizure, speech problems, tingling, tremors, weakness, others Musculoskeletal: denies: back pain, gout, joint pain, joint swelling, muscle pain, muscle stiffness, neck pain, others Integumetry: denies: bruises, change in color, change in hair/nails, dryness, laceration, lesions, lumps, rash, wounds, others Allergic/Immunocompromised: denies: Difficulty Healing, Frequent Infections, Hives, Itching, others Hematologic/Lymphatic: denies: anemia, blood clots, easy bleeding, easy bruising, swollen glands, others Endocrine: denies: excessive hunger, excessive sweating, excessive thirst, excessive urination, flushing, intolerance to cold, intolerance to heat, unexplained weight gain, unexplained weight loss, others Psychiatric: denies: anxiety, bipolar disorder, depression, hopeless, panic disorder, schizophrenia, sleepless, suicidal, others All Other Systems: Reviewed and Negative Physical Exam General Appearance: Mild Distress, Obese HEENT: Normal ENT Inspection, Pharynx Normal, TMs Normal Neck: Full Range of Motion, Non-Tender, Normal, Normal Inspection Respiratory: Chest Non-Tender, Lungs Clear, No Accessory Muscle Use, No Respiratory Distress, Normal Breath Sounds Cardiovascular: No Edema, No JVD, No Murmur, No Gallop, Normal Peripheral Pulses, Regular Rate/Rhythm Breast Exam: Deferred Gastrointestinal: No Organomegaly, No Pulsatile Mass, Normal Bowel Sounds, Soft, Suprapubic, Tenderness Genitalia: Deferred Pelvic: Deferred Rectal: Deferred Extremities: No calf tenderness, Normal capillary refill, Normal inspection, Normal range of motion, Non-tender, No pedal edema Musculoskeletal : Apperance: Normal Neurologic: Alert, drill operator automatic II-XII nml as Tested, No Motor Deficits, Normal Affect, Normal Mood, No Sensory Deficits Cerebellar Function: Normal Reflexes: Normal Skin: Dry, Normal Color, Warm Lymphatic: No Adenopathy Was a procedure done? Was a procedure done?: No Differential Diagnosis Kidney stone (Female): Urinary obstruction, Urolithiasis Urinary Problem (Female): UTI X-Ray, Labs, Meds, VS Vital Signs Date Time Temp Pulse Resp B/P (MAP) Pulse Ox O2 Delivery O2 Flow Rate FiO2 05/05/25 10:43 108 18 151/85 (107) 97 05/05/25 10:43 108 18 97 Room Air 05/05/25 09:57 98.3 96 17 157/85 (109) 99 98.3 Lab Test 05/05/25 10:00 Range/Units Urine Color Light-orange Yellow Urine Clarity Turbid H Clear Urine pH 6.0 5.0-9.0 Urine Specific [place] 1.032 1.001-1.035 Urine Protein 1+ H Negative Urine Ketones Trace Negative Urine Blood 1+ H Negative /uL Urine Nitrite Negative Negative Urine Bilirubin Negative Negative Urine Urobilinogen 2 H Negative mg/dL Urine Leukocyte Esterase 3+ Negative /uL Urine RBC 31 0 - 4 /hpf Urine Microscopic WBC 273 H 0-5 /HPF Urine Squamous Epithelial Cells Mod <5 /hpf Urine Bacteria Few H None Seen /hpf Urine Mucus Few None Seen Urine Glucose Normal Normal mg/dL Urine test is positive for significant UTI The patient is being discharged and will follow up with the primary care doctor The patient will return to the emergency department's condition worsens The patient's diagnosis is UTI Time of 1ST Reevaluation: 11:39 Reevaluation 1ST: Unchanged Patient Education/Counseling: Diagnosis, Treatment, Prognosis, Need For Follow Up Family Education/Counseling: No Family Present Additional Information Reviewed patient's previous visit(s): 04/15/25 for dysfunctional uterine bleeding The following tests were ordered, and results were reviewed by me: UA Additional information was gathered from interviewing the following independent historian: None I reviewed and agreed with the following test results read by other provider: None I discussed treatments and results with medical personnel and: PATIENT Comprehensive systems review obtained and negative except for what is stated in the HPI. SEPSIS Sepsis Screen Date sepsis recognized/suspect: May 05, 2025 Time Sepsis recognized/suspect: 956 Recent Procedure: No On Antibiotic Therapy: No Respiratory Rate >20: No Heart Rate >90: Yes Temp<36 C (96.8 F) or >38.3 C: No SBP <90 or MAP <65 mmHG: No New Acute Mental Status Change: No Is the patient on CPAP, BIPAP,: No Physician Orders Ciprofloxacin Tablet (Cipro Tablet) (05/05/25 11:45) Vital Signs Date Time Temp Pulse Resp B/P (MAP) Pulse Ox O2 Delivery O2 Flow Rate FiO2 05/05/25 10:43 108 18 151/85 (107) 97 05/05/25 10:43 108 18 97 Room Air 05/05/25 09:57 98.3 96 17 157/85 (109) 99 98.3 Departure 1 Departure Time of Disposition: 11:39 Impression: Primary Impression: UTI (urinary tract infection) Qualified Codes: N30.01 - Acute cystitis with hematuria Disposition: HOME / SELF CARE / HOMELESS Condition: Fair e-Prescriptions Tramadol HCl (Tramadol HCl) 50 Mg Tab 50 MG PO Q12HP PRN for 5 Days, #10 TAB Prov: SAMANTHA RESTREPO MD 05/05/25 Ciprofloxacin Hcl (Cipro) 500 Mg Tab 1 TAB PO BID, #20 TAB Prov: SAMANTHA RESTREPO MD 05/05/25 Discharged With: Self Critical Care Note Critical Care Time?: No Stability Stability form required: No Heart Score Heart Score: Heart Score Response (Comments) Value History N/A 0 EKG N/A 0 Age N/A 0 Risk Factors N/A 0 Troponin N/A 0 Total 0 I personally scribed for SAMANTHA RESTREPO MD ([email or web address]) on 05/05/25 at 10:29. Electronically submitted by Woo Jacques ([email or web address]). SAMANTHA RESTREPO MD May 05, 2025 10:29
[2025-05-05 10:43] VITALS: BP 151/85; PULSE 108; RESP 18; O2SAT 97
[2025-05-05 11:22] LABS: Urine Bacteria FEW /hpf (None Seen); Urine Blood 1+ /uL (Negative); Urine Clarity Turbid (Clear); Urine Color Light-Orange (Yellow); Urine Mucus FEW (None Seen); Urine Protein, UAD 1+ (Negative); Urine Specific Gravity 1.032 (1.001-1.035); Urine Squamous Epithelial Cell MOD /hpf (<5); Urine Urobilinogen 2 mg/dL (Negative); Urine WBC 273 /HPF (0-5)
[2025-05-05] MEDS ORDERED: TRAM-626 PO (11:36)
[2025-05-05] MEDS: HYDROcodone-ACET 5/325MG TAB PO ONE (11:47)
[2025-05-05] MEDS: CIPROFLOXACIN HCL 500 MG TAB PO ONE (11:47)
== END 2025-05-05 11:52 | disposition home or self-care (01) ==
LOC: ER 09:33
DX: N39.0 Urinary tract infection, site not specified (principal); Z79.899 Other long term (current) drug therapy; Z90.49 Acquired absence of other specified parts of digestive tract; Z98.890 Other specified postprocedural states
CPT/HCPCS: 81001

== ENCOUNTER 2025-05-10 14:53 | Inpatient (IN) | payer MEDICAID ==
[~2025-05-10] VITALS: Ht 152.4 cm; Wt 93.6 kg
[~2025-05-10 14:53] MED LIST changes: +TRAM-626 PO
[2025-05-10 15:42] LABS: Urine Protein, UAD TRACE (Negative)
[2025-05-10 15:55] LABS: Hematocrit 33.1 % (36.0-46.0); Hemoglobin 10.9 g/dL (12.2-16.2); Mean Corpuscular Hemoglobin 28.8 pg (28.0-32.0); Mean Corpuscular Volume 87.1 fL (80.0-100.0); Nucleated Red Blood Cells % 0.1 %
[2025-05-10 16:03] LABS: Potassium 3.6 mmol/L (3.5-5.1); Sodium 140 mmol/L (136-145)
[2025-05-10 16:04] LABS: Calcium 8.8 mg/dL (8.7-10.4)
[2025-05-10] MEDS: SODIUM CHLORIDE 0.9% 1,000 ML IV ONE ×3 (16:04→18:56)
[2025-05-10] MEDS: cefTRIAXone 1GM/50ML D5W 50 ML IV ONE (16:04)
[2025-05-10] MEDS: KETOROLAC TROMETH 30 MG/ML 1ML VIAL IV ONE (16:04)
[2025-05-10] MEDS: ONDANSETRON HCL 4 MG/2 ML VIAL IV ONE (16:04)
[2025-05-10] MEDS: PSEUDOEPHEDRINE HCL 30 MG TAB PO ONE (16:05)
[2025-05-10 16:06] LABS: Anion Gap 12 (5-15); Carbon Dioxide 20 mmol/L (20-31); Chloride 108 mmol/L (98-107)
[2025-05-10 16:09] LABS: BUN/Creatinine Ratio 12.0 (10.0-20.0); Blood Urea Nitrogen 9 mg/dL (9-23)
[2025-05-10 16:14] LABS: Glucose 119 mg/dL (74-106)
--- NOTE | 2025-05-10 16:36 | DVH ---
EXAM: XY CHEST PORTABLE CLINICAL HISTORY: fever TECHNIQUE: Single AP view of the chest WID: COMPARISON: 09/30/2024 FINDINGS: Lines and tubes: None Chest: The heart size and pulmonary vasculature is within normal limits. No pleural effusion, pneumothorax, or consolidation. The osseous structures are grossly intact. IMPRESSION: No acute cardiopulmonary abnormality.
--- NOTE | 2025-05-10 16:46 | ED.PDOC ---
General HPI Comments 49y F who presents to the ED for chief complaint of urinary complaints. Pt state she has been having dysuria and associated pain radiating to the L lower flank region. Pt states she has been dealing with UTI and was prescribed antibiotics but is still having urinary symptoms. Pt states she also came back from cruise on Sunday and has since been having cough, congestion and flu-like symptoms that have exacerbated since. Pt in the ED, in noted distress and rates her L flank pain 9/10, with no noted exacerbating or relieving factors. Pt otherwise denies any other symptoms at this time. Chief Complaint: Urinary Time Seen by MD: 14:56 Primary Care Provider: RAMIREZ Reviewed notes: Medications, Allergies Allergies: Coded Allergies: NO KNOWN ALLERGIES (Unverified , 02/04/24) Home Meds Active Scripts Tramadol HCl (Tramadol HCl) 50 Mg Tab, 50 MG PO Q12HP PRN for 5 Days, #10 TAB Prov:SAMANTHA RESTREPO MD 05/05/25 Ciprofloxacin Hcl (Cipro) 500 Mg Tab, 1 TAB PO BID, #20 TAB Prov:SAMANTHA RESTREPO MD 05/05/25 Ibuprofen (Ibuprofen) 800 Mg Tab, 1 TAB PO TID PRN, #30 TAB 0 Refills Prov:BRE DICKEY MD 04/16/25 Gabapentin (Once-Daily) (Gabapentin) 300 Mg Tab, 300 MG PO Q6HP PRN, #30 TAB Prov:BRE DICKEY MD 04/16/25 Norgestrel & Ethinyl Estradiol (Low-Ogestrel 0.3-30 mg-Mcg) 1 Tab Tab, 1 TAB PO DAILY for 90 Days, #90 TAB 3 Refills Prov:BRE DICKEY MD 04/15/25 Sulfamethoxazole W/Trimethopri (Bactrim Ds Tablet) 1 Tab Tb, 1 TAB PO BID for 7 Days, #14 TAB Prov:BRE DICKEY MD 04/15/25 Medroxyprogesterone Acetate (PROVERA) 5 Mg Tab, 2 TAB PO DAILY, #3 TAB 11 Refills Prov:SHANE RAHMAN MD 04/11/25 Ibuprofen (Ibuprofen) 600 Mg Tab, 600 MG PO TID for 30 Days, #90 TAB 0 Refills Prov:SAIRA SCHROEDER 10/14/24 Nifedipine (Nifedipine Er) 30 Mg Tab, 1 TAB PO DAILY for 30 Days, #30 TAB 1 Refill Prov:PATRICK HERNANDEZ RESIDENT 10/01/24 Information Source: Patient Mode of Arrival: Ambulatory Brought in by: self Past Medical History PAST MEDICAL HISTORY: Denies Surgical History: Cholecystectomy, , Hernia Repair FAMILY LAW PARALEGAL History: No Pertinent FAMILY LAW PARALEGAL History Family History Family History: Reviewed,noncontributory to illness, Family hx of DM, Family hx of HTN Social History Smoker: Non-Smoker Alcohol: Occasionally Drugs: Denies Drug Use Lives In: Home Constitutional: denies: chills, diaphoresis, fatigue, fever, malaise, sweats, weakness, others EENTM: denies: blurred vision, double vision, ear bleeding, ear discharge, ear drainage, ear pain, ear ringing, eye pain, eye redness, hearing loss, mouth pain, mouth swelling, nasal discharge, nose bleeding, nose congestion, nose pain, photophobia, tearing, throat pain, throat swelling, voice changes, others Respiratory: denies: cough, hemoptysis, orthopnea, SOB at rest, shortness of breath, SOB with excertion, stridor, wheezing, others Cardiovascular: denies: chest pain, dizzy spells, diaphoresis, Dyspnea on exertion, edema, irregular heart beat, left arm pain, lightheadedness, palpitations, PND, syncope, others Gastrointestinal: denies: abdomen distended, abdominal pain, blood streaked bowels, constipated, diarrhea, dysphagia, difficulty swallowing, hematemesis, melena, nausea, poor appetite, poor fluid intake, rectal bleeding, rectal pain, vomiting, others Genitourinary: reports: dysuria, flank pain; denies: abnormal vagina bleeding, burning, dyspareunia, frequency, hematuria, incontinence, pain, , vagina discharge, urgency, others Neurological: denies: dizziness, fainting, headache, left sided numbness, left sided weakness, numbness, paresthesia, pre-existing deficit, right sided numbness, right sided weakness, seizure, speech problems, tingling, tremors, weakness, others Musculoskeletal: denies: back pain, gout, joint pain, joint swelling, muscle pain, muscle stiffness, neck pain, others Integumetry: denies: bruises, change in color, change in hair/nails, dryness, laceration, lesions, lumps, rash, wounds, others Allergic/Immunocompromised: denies: Difficulty Healing, Frequent Infections, Hives, Itching, others Hematologic/Lymphatic: denies: anemia, blood clots, easy bleeding, easy bruising, swollen glands, others Endocrine: denies: excessive hunger, excessive sweating, excessive thirst, excessive urination, flushing, intolerance to cold, intolerance to heat, unexplained weight gain, unexplained weight loss, others Psychiatric: denies: anxiety, bipolar disorder, depression, hopeless, panic disorder, schizophrenia, sleepless, suicidal, others All Other Systems: Reviewed and Negative Physical Exam General Appearance: No Apparent Distress, Normal HEENT: Normal ENT Inspection, Pharynx Normal, TMs Normal Neck: Full Range of Motion, Non-Tender, Normal, Normal Inspection Respiratory: Chest Non-Tender, Lungs Clear, No Accessory Muscle Use, No Respiratory Distress, Normal Breath Sounds Cardiovascular: No Edema, No JVD, No Murmur, No Gallop, Normal Peripheral Pulses, Regular Rate/Rhythm Breast Exam: Deferred Gastrointestinal: Other (L flank tendernes to palpation) Genitalia: Deferred Pelvic: Deferred Rectal: Deferred Extremities: No calf tenderness, Normal capillary refill, Normal inspection, Normal range of motion, Non-tender, No pedal edema Musculoskeletal : Apperance: Normal Neurologic: Alert, journalism professor II-XII nml as Tested, No Motor Deficits, Normal Affect, Normal Mood, No Sensory Deficits Cerebellar Function: Normal Reflexes: Normal Skin: Dry, Normal Color, Warm Lymphatic: No Adenopathy Was a procedure done? Was a procedure done?: No Differential Diagnosis Kidney stone (Female): Musculoskeletal pain, Ovarian torsion, Pyelonephritis, Strain, Urinary obstruction, Urolithiasis Urinary Problem (Female): PID, Pyelonephritis, Urinary retention X-Ray, Labs, Meds, VS Vital Signs Date Time Temp Pulse Resp B/P (MAP) Pulse Ox O2 Delivery O2 Flow Rate FiO2 05/10/25 18:00 97.4 99 20 161/91 (114) 100 97.4 05/10/25 16:05 Room Air* 0 21 05/10/25 15:52 98.7 122 20 138/93 (108) 97 98.7 05/10/25 15:52 122 16 97 Room Air 05/10/25 15:01 99.3 116 17 127/89 (102) 96 99.3 Lab Test 05/10/25 15:42 05/10/25 15:00 Range/Units White Blood Count 4.3 L 4.4-10.8 10^3/uL Red Blood Count 3.80 L 4.0-5.20 10^6/uL Hemoglobin 10.9 L 12.2-16.2 g/dL Hematocrit 33.1 L 36.0-46.0 % Mean Corpuscular Volume 87.1 80.0-100.0 fL Mean Corpuscular Hemoglobin 28.8 28.0-32.0 pg Mean Corpuscular Hemoglobin Concent 33.0 32.0-36.0 g/dL Red Cell Distribution Width 14.2 11.8-14.3 % Platelet Count 369 140-450 10^3/uL Mean Platelet Volume 6.7 L 6.9-10.8 fL Neutrophils (%) (Auto) 43.8 37.0-80.0 % Lymphocytes (%) (Auto) 38.2 10.0-50.0 % Monocytes (%) (Auto) 13.6 H 0.0-12.0 % Eosinophils (%) (Auto) 3.2 0.0-7.0 % Basophils (%) (Auto) 1.2 0.0-2.0 % Neutrophils # (Auto) 1.9 1.6-8.6 10 ^3/uL Lymphocytes # (Auto) 1.6 0.4-5.4 10 ^3/uL Monocytes # (Auto) 0.6 0-1.3 10 ^3/uL Eosinophils # (Auto) 0.1 0-0.8 10 ^3/uL Basophils # (Auto) 0.1 0-0.2 10 ^3/uL Nucleated Red Blood Cells 0.1 % Sodium Level 140 136-145 mmol/L Potassium Level 3.6 3.5-5.1 mmol/L Chloride Level 108 H 98-107 mmol/L Carbon Dioxide Level 20 20-31 mmol/L Anion Gap 12 5-15 Blood Urea Nitrogen 9 9-23 mg/dL Creatinine 0.75 0.550-1.02 mg/dL Glomerular Filtration Rate Calc 99 >90 mL/min BUN/Creatinine Ratio 12.0 10.0-20.0 Serum Glucose 119 H 74-106 mg/dL Lactic Acid Level 2.0 0.4-2.0 mmol/L Calcium Level 8.8 8.7-10.4 mg/dL Urine Color Yellow Yellow Urine Clarity Turbid H Clear Urine pH 6.0 5.0-9.0 Urine Specific [place] 1.015 1.001-1.035 Urine Protein Trace H Negative Urine Ketones Negative Negative Urine Blood Negative Negative /uL Urine Nitrite Negative Negative Urine Bilirubin Negative Negative Urine Urobilinogen Normal Negative mg/dL Urine Leukocyte Esterase 1+ Negative /uL Urine RBC 3 0 - 4 /hpf Urine Microscopic WBC 54 H 0-5 /HPF Urine Squamous Epithelial Cells Few <5 /hpf Urine Bacteria Mod H None Seen /hpf Urine Mucus Few None Seen Urine Glucose Normal Normal mg/dL Current Medications Medications (Trade) Dose Ordered Sig/Finn Route Start Time Stop Time Status Last Admin Sodium Chloride 1,000 ml @ 1,000 mls/hr Q1H ONCE IV 05/10/25 15:30 05/10/25 16:29 DC 05/10/25 16:04 Ondansetron HCl (Zofran) 4 mg ONCE ONCE IV 05/10/25 15:30 05/10/25 15:33 DC 05/10/25 16:04 Ketorolac Tromethamine (Toradol Injection) 15 mg ONCE ONCE IV 05/10/25 15:30 05/10/25 15:33 DC 05/10/25 16:04 Ceftriaxone Sodium 50 ml @ 100 mls/hr ONCE ONCE IV 05/10/25 15:30 05/10/25 15:59 DC 05/10/25 16:04 Time of 1ST Reevaluation: 18:27 Reevaluation 1ST: Improved Patient Education/Counseling: Diagnosis, Treatment Family Education/Counseling: No Family Present SEPSIS Sepsis Screen Date sepsis recognized/suspect: May 10, 2025 Time Sepsis recognized/suspect: 7 Recent Procedure: No On Antibiotic Therapy: No Respiratory Rate >20: No Heart Rate >90: No Temp<36 C (96.8 F) or >38.3 C: No SBP <90 or MAP <65 mmHG: No New Acute Mental Status Change: No Is the patient on CPAP, BIPAP,: No Physician Orders Blood Culture (05/10/25 15:26) Chest Portable (05/10/25 15:26) Sodium Chloride 0.9% (05/10/25 17:45) Vital Signs Date Time Temp Pulse Resp B/P (MAP) Pulse Ox O2 Delivery O2 Flow Rate FiO2 05/10/25 18:00 97.4 99 20 161/91 (114) 100 97.4 05/10/25 16:05 Room Air* 0 21 05/10/25 15:52 98.7 122 20 138/93 (108) 97 98.7 05/10/25 15:52 122 16 97 Room Air 05/10/25 15:01 99.3 116 17 127/89 (102) 96 99.3 Laboratory Tests Test 05/10/25 15:42 Lactic Acid Level 2.0 mmol/L (0.4-2.0) White Blood Count 4.3 10^3/uL (4.4-10.8) L Medications Medications Dose Ordered Sig/Finn Route Start Time Stop Time Status Last Admin Dose Admin Ceftriaxone Sodium 50 ml @ 100 mls/hr ONCE ONCE IV 05/10/25 15:30 05/10/25 15:59 DC 05/10/25 16:04 Ketorolac Tromethamine 15 mg ONCE ONCE IV 05/10/25 15:30 05/10/25 15:33 DC 05/10/25 16:04 Ondansetron HCl 4 mg ONCE ONCE IV 05/10/25 15:30 05/10/25 15:33 DC 05/10/25 16:04 Sodium Chloride 1,000 ml @ 1,000 mls/hr Q1H ONCE IV 05/10/25 15:30 05/10/25 16:29 DC 05/10/25 16:04 Departure 1 Departure Time of Disposition: 18:25 (He had likely a viral syndrome as well as pyelonephritis. Patient failed outpatient Keflex we will try patient on cefdinir. Discharge patient home with outpatient follow up) Impression: Primary Impression: Pyelonephritis Additional Impressions: Viral syndrome Pharyngitis Qualified Codes: J02.9 - Acute pharyngitis, unspecified Disposition: HOME / SELF CARE / HOMELESS Condition: Stable Additional Instructions: You have a urinary tract infection that has failed the antibiotics you were taking. You were prescribed stronger antibiotics. Please take as directed. He has antibiotics should also help you with your sore throat. Please stay well rested and well hydrated. For pain you can take the followinam: Ibuprofen 400mg with food Noon: Acetaminophen 1000mg 4pm: Ibuprofen 400mg with food 8pm: Acetaminophen 1000mg You should follow up with your regular doctor within one week to ensure you are doing better. If your symptoms worsen or you have any other concerns then please return to the ER. e-Prescriptions Cefdinir (Cefdinir) 300 Mg Cap 1 CAP PO BID for 7 Days, #14 CAP Prov: EMILY VALDEZ MD 05/10/25 Discharged With: Self Critical Care Note Critical Care Time?: No Stability Stability form required: No Heart Score Heart Score: Heart Score Response (Comments) Value History N/A 0 EKG N/A 0 Age N/A 0 Risk Factors N/A 0 Troponin N/A 0 Total 0 I personally scribed for EMILY VALDEZ MD ([email or web address]) on 05/10/25 at 16:46. Electronically submitted by Deven Jones ([email or web address]). EMILY VALDEZ MD May 10, 2025 16:46
[2025-05-10] MEDS ORDERED: CEFD300C2 PO (18:27)
[2025-05-10] MEDS: HYDROcodone-ACET 5/325MG TAB PO ONE (18:29)
--- NOTE | 2025-05-10 18:39 | ED.PDOC ---
Departure 1 Departure Time of Disposition: 18:39 (Insert discharge patient home however patient was still tachy and generally feeling very fatigue. We will admit patient for further workup and expert consultation) Impression: Primary Impression: Pyelonephritis Additional Impressions: Viral syndrome Pharyngitis Qualified Codes: J02.9 - Acute pharyngitis, unspecified Disposition: ADMITTED INPATIENT Admit to: Med Surg Condition: Serious Additional Instructions: You have a urinary tract infection that has failed the antibiotics you were taking. You were prescribed stronger antibiotics. Please take as directed. He has antibiotics should also help you with your sore throat. Please stay well rested and well hydrated. For pain you can take the followinam: Ibuprofen 400mg with food Noon: Acetaminophen 1000mg 4pm: Ibuprofen 400mg with food 8pm: Acetaminophen 1000mg You should follow up with your regular doctor within one week to ensure you are doing better. If your symptoms worsen or you have any other concerns then please return to the ER. e-Prescriptions Cefdinir (Cefdinir) 300 Mg Cap 1 CAP PO BID for 7 Days, #14 CAP Prov: EMILY VALDEZ MD 05/10/25 Discharged With: Self EMILY VALDEZ MD May 10, 2025 18:39
[2025-05-10] MEDS: ACETAMINOPHEN 325 MG TAB PO ONE (18:48)
[2025-05-10] MEDS ORDERED: ACETAMINOPHEN 325 MG TAB PO PRN (20:15)
[2025-05-10] MEDS ORDERED: ONDANSETRON HCL 4 MG/2 ML VIAL IV PRN (20:15)
[2025-05-10] MEDS ORDERED: TEMAZEPAM 15 MG CAP PO PRN (20:15)
[2025-05-10 22:00] VITALS: BP 148/85; PULSE 104; RESP 18; TEMP 99; O2SAT 95
[2025-05-10] MEDS: MORPHINE SULFATE INJ 2 MG/ml SYRG IV PRN (22:11)
[2025-05-10] MEDS: HYDROcodone-ACET 5/325MG TAB PO PRN (23:25)
--- NOTE | 2025-05-10 23:28 | DVHHP2 ---
History of Present Illness Reason for Visit: Urinary symptoms History of Present Illness 49-year-old female presents for for evaluation of urinary symptoms. Patient reports recently being treated for a UTI. She states symptoms have not resolved. Complaints of dysuria and flank pain. She also reports recently coming back from a cruise and has developed flu-like symptoms including congestion and sore throat. Denies shortness or breath or fever. Past Medical History Hypertension Past Surgical History Denies Family History Noncontributory Smoke: No ALCOHOL: occassional Drugs: None Lives: with Family Review of Systems Review of Systems Review of systems are currently negative otherwise addressed in HPI. Allergies: Coded Allergies: NO KNOWN ALLERGIES (Unverified , 02/04/24) Medications Current Medications Medications Dose Ordered Sig/Finn Route Start Time Stop Time Status Last Admin Dose Admin Ceftriaxone Sodium 50 ml @ 100 mls/hr Q24H IV 05/11/25 15:30 Acetaminophen/ Hydrocodone Bitart 1 tab Q4HP PRN PO 05/10/25 20:15 Temazepam 15 mg QHSP PRN PO 05/10/25 20:15 Ondansetron HCl 4 mg Q4HP PRN IV 05/10/25 20:15 Acetaminophen 650 mg Q6HP PRN PO 05/10/25 20:15 Morphine Sulfate 2 mg Q6HPRN PRN IV 05/10/25 20:15 05/10/25 22:11 2 MG Exam Vital Signs Vital Signs Date Time Temp Pulse Resp B/P (MAP) Pulse Ox O2 Delivery O2 Flow Rate FiO2 05/10/25 22:11 104 18 148/85 05/10/25 22:00 99.0 95 99.0 05/10/25 16:05 Room Air* 0 21 Exam Gen: 49-year-old female in mild distress, morbidly Skin: Warm, dry, normal color and texture, no rash. HEENT: Normocephalic atraumatic, mucous membranes moist and pink. Neck: Cervical and supraclavicular nodes normal without enlargement, trachea is midline, thyroid gland is normal without masses. Pulmonary: Clear to auscultation and percussion bilaterally. Cardiac: Regular rate and rhythm. No murmur Abdomen: Soft, nontender, nondistended, bowel sounds present all 4 quadrants, no guarding, no rigidity, no organomegaly. Extremities: No cyanosis, clubbing, no edema Neuro: Cranial nerves II through XII grossly intact, normal affect and speech, no focal motor deficits. Labs/Xrays ORDERING PHYSICIAN: EMILY VALDEZ MD PROCEDURE(s): CXRP - CHEST PORTABLE REASON: fever ORDER NUMBER(s): [id number], ACCESSION NUMBER(s): [id number] EXAM: XY CHEST PORTABLE CLINICAL HISTORY: fever TECHNIQUE: Single AP view of the chest WID: COMPARISON: 09/30/2024 FINDINGS: Lines and tubes: None Chest: The heart size and pulmonary vasculature is within normal limits. No pleural effusion, pneumothorax, or consolidation. The osseous structures are grossly intact. IMPRESSION: No acute cardiopulmonary abnormality. ATED BY: SRIKANTH BOX MD Labs Test 05/10/25 15:42 05/10/25 15:00 Range/Units White Blood Count 4.3 L 4.4-10.8 10^3/uL Red Blood Count 3.80 L 4.0-5.20 10^6/uL Hemoglobin 10.9 L 12.2-16.2 g/dL Hematocrit 33.1 L 36.0-46.0 % Mean Corpuscular Volume 87.1 80.0-100.0 fL Mean Corpuscular Hemoglobin 28.8 28.0-32.0 pg Mean Corpuscular Hemoglobin Concent 33.0 32.0-36.0 g/dL Red Cell Distribution Width 14.2 11.8-14.3 % Platelet Count 369 140-450 10^3/uL Mean Platelet Volume 6.7 L 6.9-10.8 fL Neutrophils (%) (Auto) 43.8 37.0-80.0 % Lymphocytes (%) (Auto) 38.2 10.0-50.0 % Monocytes (%) (Auto) 13.6 H 0.0-12.0 % Eosinophils (%) (Auto) 3.2 0.0-7.0 % Basophils (%) (Auto) 1.2 0.0-2.0 % Neutrophils # (Auto) 1.9 1.6-8.6 10 ^3/uL Lymphocytes # (Auto) 1.6 0.4-5.4 10 ^3/uL Monocytes # (Auto) 0.6 0-1.3 10 ^3/uL Eosinophils # (Auto) 0.1 0-0.8 10 ^3/uL Basophils # (Auto) 0.1 0-0.2 10 ^3/uL Nucleated Red Blood Cells 0.1 % Sodium Level 140 136-145 mmol/L Potassium Level 3.6 3.5-5.1 mmol/L Chloride Level 108 H 98-107 mmol/L Carbon Dioxide Level 20 20-31 mmol/L Anion Gap 12 5-15 Blood Urea Nitrogen 9 9-23 mg/dL Creatinine 0.75 0.550-1.02 mg/dL Glomerular Filtration Rate Calc 99 >90 mL/min BUN/Creatinine Ratio 12.0 10.0-20.0 Serum Glucose 119 H 74-106 mg/dL Lactic Acid Level 2.0 0.4-2.0 mmol/L Calcium Level 8.8 8.7-10.4 mg/dL Urine Color Yellow Yellow Urine Clarity Turbid H Clear Urine pH 6.0 5.0-9.0 Urine Specific [place] 1.015 1.001-1.035 Urine Protein Trace H Negative Urine Ketones Negative Negative Urine Blood Negative Negative /uL Urine Nitrite Negative Negative Urine Bilirubin Negative Negative Urine Urobilinogen Normal Negative mg/dL Urine Leukocyte Esterase 1+ Negative /uL Urine RBC 3 0 - 4 /hpf Urine Microscopic WBC 54 H 0-5 /HPF Urine Squamous Epithelial Cells Few <5 /hpf Urine Bacteria Mod H None Seen /hpf Urine Mucus Few None Seen Urine Glucose Normal Normal mg/dL Assessment/Plan Assessment/Plan Assessment Pyelonephritis Viral syndrome Acute pharyngitis Hypertension Morbid obesity Plan Admit the patient to [facility] to the hospitalist Kanika Urine bacterial culture pending Resume home medications Continue treatment per orders. Plan discussed with: Patient My Orders Orders - WYATT VELASCO AGACNP Procedure Category Date Status Time Ceftriaxone 1gm/50ml PHA 05/11/25 In Process D5w (Rocephin) 15:30 Urine Bacterial MAGDALENA 05/10/25 In Process Culture 20:04 Admit ADMIT 05/10/25 Transmitted 20:04 Hydrocodone-Acet PHA 05/10/25 In Process 5/325mg Tab ([place] 20:15 Temazepam (Restoril) PHA 05/10/25 In Process 20:15 Ondansetron Hcl PHA 6/29/25 In Process (Zofran) 20:15 Condition: Stable BRISSA 05/10/25 In Process 20:04 Acetaminophen Tablet PHA 05/10/25 In Process (Tylenol Tablet) 20:15 Bedrest With Bathroom BRISSA 05/10/25 In Process Privileg 20:04 Morphine Sulfate PHA 05/10/25 In Process Injection 20:15 Regular Diet DIET 05/11/25 Transmitted Breakfast Date of Service: May 10, 2025 Billing Provider: WYATT VELASCO Common Visit Codes: 65454-[id number] INP/OBS CARE (MOD) WYATT VELASCO May 10, 2025 23:28
[2025-05-11] VITALS (7 sets, daily range): BP systolic 119–140; BP diastolic 73–85; PULSE 94–120; RESP 16–18; TEMP 98–99.5; O2SAT 95–99
[2025-05-11] MEDS: cefTRIAXone 1GM/50ML D5W 50 ML IV SCH (14:32)
[2025-05-11] MEDS: guaiFENesin-DM 100/10mg/5ml SYR PO PRN (14:55)
--- NOTE | 2025-05-11 17:40 | DVHPNRES ---
Progress Note Date Seen: May 11, 2025 Resident Creating Document: ABDI COOK RESIDENT Medical Necessity Reason Pt with a Central, PICC or Fol: No Subjective Review of Systems This is a 49-year-old female with past medical history of hypertension presented to the ED with a chief complaint of generalized body ache, flu-like symptoms and burning sensation in the urine since last 1 day prior to this admission. The patient states that she was recently any gross and came back on last Sunday started having generalized body ache, flu-like symptoms and also burning sensation in the urine. Patient had history of UTI few weeks ago and finished oral antibiotic but the symptoms did not resolve as well. She denied fever, chest pain, shortness of breath, nausea, vomiting, abdominal pain or any change in the bowel habit. Patient was seen and examined on the bedside. She is alert oriented x3 and on room air. Complaint of generalized body pain, nasal congestion and heartburn. No other active complaint at this time. Constitutional: Chills, No: Fever, Sweats, Weakness, Malaise, Other Eyes: No: Pain, Vision change, Conjunctivae inflammation, Eyelid inflammation, Other, Redness ENT: No: Ear pain, Ear discharge, Nose pain, Nose discharge, Nose congestion, Mouth pain, Mouth swelling, Throat pain, Throat swelling, Other Respiratory: Shortness of breath, improving No: Cough, Dry,Wheezing, Hemoptysis, Pleuritic Pain, Sputum, Wheezing, Other Cardiovascular: No: Chest Pain, Palpitations, Orthopnea, Paroxysmal Noc. Dyspnea, Edema, Lt Headedness, Other Gastrointestinal: No: Nausea, Vomiting, Abdominal Pain, Diarrhea, Constipation, Melena, Hematochezia, Other Musculoskeletal: No: other, neck pain, shoulder pain, arm pain, back pain, hand pain, leg pain, foot pain Genitourinary: Frequency, urgency, burning sensation in the urine Neurological:; No: Weakness, Numbness, Incoordination, Change in speech, Confusion, Seizures Objective vital signs Vital Sign Date Time Temp Pulse Resp B/P (MAP) Pulse Ox O2 Delivery O2 Flow Rate FiO2 05/11/25 16:30 99.5 120 17 121/80 (94) 96 99.5 05/11/25 08:51 Room Air* 0 21 Total Intake and Output 05/10/25 05/10/25 05/11/25 15:00 23:00 07:00 Intake Total 1050 ml Balance 1050 ml medications Current Medications Medications Dose Ordered Sig/Finn Route Start Time Stop Time Status Last Admin Dose Admin Ceftriaxone Sodium 50 ml @ 100 mls/hr Q24H IV 05/11/25 15:30 05/11/25 14:32 100 MLS/HR Acetaminophen/ Hydrocodone Bitart 1 tab Q4HP PRN PO 05/10/25 20:15 05/11/25 14:32 1 TAB Temazepam 15 mg QHSP PRN PO 05/10/25 20:15 Ondansetron HCl 4 mg Q4HP PRN IV 05/10/25 20:15 Acetaminophen 650 mg Q6HP PRN PO 05/10/25 20:15 Morphine Sulfate 2 mg Q6HPRN PRN IV 05/10/25 20:15 05/11/25 10:33 2 MG Guaifenesin/ Dextromethorphan 10 ml Q4HP PRN PO 05/10/25 23:30 05/11/25 14:55 10 ML Nifedipine 30 mg DAILY PO 05/11/25 10:00 05/11/25 10:32 30 MG Oseltamivir Phosphate 75 mg Q12HR PO 05/11/25 22:00 05/16/25 21:59 Pantoprazole Sodium 40 mg DAILY@0600 PO 05/12/25 06:00 UNV Examination Physical examination: General Appearance: Alert, Oriented X3, Cooperative, No acute distress HEENT: Atraumatic, PERRLA, EOMI, Mucous membrane moist/pink Respiratory: Clear to auscultation, Normal air movement Cardiovascular: Regular rate, Normal S1, Normal S2, No murmurs, no chest wall tenderness Abdominal: Mild tenderness in the pelvic region, Normal bowel sounds, Soft, No hepatospenomegaly, No masses Extremities: No clubbing, No cyanosis, No edema, Normal pulses, No tenderness/swelling Skin: No rashes, No breakdown, No significant lesion Neuro: Normal gait, Normal speech, Strength at 5/5 X4 ext, Normal tone, Sensation intact, Cranial nerves 3-12 NL, Reflexes 2+ Psych/Mental Status: Mental status NL, Mood NL laboratory and microbiology Laboratory Tests 05/10/25 15:42 Test 05/10/25 15:42 Range/Units Serum Glucose 119 H 74-106 mg/dL Microbiology Date/Time Source Procedure Growth Status 05/10/25 15:42 Blood Blood Culture - Preliminary NO GROWTH AFTER 24 HOURS OF INCUBATION. Resulted 05/10/25 15:00 Voided Urine Urine Culture - Preliminary Resulted Labs and/or images reviewed: Labs reviewed by me, Image(s) reviewed by me Problem List/Assessment/Plan Problem List/Assessment/Plan Assessment and plan: # Influenza type A and B infection - Serology is positive for influenza type A and B - CxR revealed normal study - Tamiflu 75 mg p.o. b.i.d. # Acute complicated cystitis - U/A was consistent with UTI - Preliminary urine bacterial culture revealed no growth in 24 hours of incubation - IV ceftriaxone 1 g daily # Chronic normocytic anemia - Outpatient follow up with PCP # GERD - History of gastric sleeve surgery - Protonix 40 mg p.o. daily # Hypertensive heart disease - Nifedipine 30 mg p.o. daily DVT prophylaxis not recommended as patient is mobile Code status: full code Plan discussed with patient, nurse Case discussed with Dr. Edwards Plan discussed with: Patient, Other My Orders My Orders Orders - ABDI COOK Procedure Category Date Status Time Covid19 Antigen [facility] LAB 05/11/25 Logged Oseltamivir 75mg PHA 05/11/25 In Process Capsule (Tamiflu 75mg 22:00 Pantoprazole Tablet PHA 05/12/25 Logged (Protonix Tablet) 06:00 Pantoprazole Tablet PHA 05/11/25 Logged (Protonix Tablet) 17:45 Diphenhdramine PHA 05/11/25 Logged Capsule (Benadryl 17:45 Date of Service: May 11, 2025 Billing Provider: ED BRADFORD MD Common Visit Codes: 95248-FXL/OBS DISCH DAY >30min ABDI COOK RESIDENT May 11, 2025 17:40 ED BRADFORD MD May 12, 2025 07:38
[2025-05-11] MEDS: OSELTAMIVIR 75 MG CAP PO ONE (18:31)
[2025-05-11] MEDS: PANTOPRAZOLE 40 MG TAB PO ONE (18:31)
[2025-05-11] MEDS: diphenhdrAMINE HCL 25 MG CAP PO ONE (18:32)
[2025-05-11] MEDS: OSELTAMIVIR 75 MG CAP PO SCH (22:10)
[2025-05-12] VITALS (8 sets, daily range): BP systolic 113–134; BP diastolic 72–82; PULSE 84–100; RESP 17–19; TEMP 98.2–99; O2SAT 90–99
[2025-05-12] MEDS: PANTOPRAZOLE 40 MG TAB PO SCH (06:00)
[2025-05-12 11:07] LABS: COVID19 ANTIGEN SOFIA FIA NEGATIVE (NEGATIVE)
--- NOTE | 2025-05-12 14:27 | DVHPNRES ---
Progress Note Date Seen: May 12, 2025 Resident Creating Document: GIOVANNA WALLER RESIDENT Has the PT tested + for MRSA If YES, has PT been informed?: No Medical Necessity Reason Pt with a Central, PICC or Fol: No Subjective Review of Systems Patient seen on bedside. She is still complaining of throat pain, body pains, the burning sensation improved compared to yesterday. She is alert on room air. She does not have fever, chills, Nausea or vomiting. Constitutional: Denies weight loss, fever and chills. Flu-like symptoms HEENT: Denies changes in vision and hearing. Respiratory: Denies shortness of breath and cough Cardiovascular: Denies chest discomfort or palpitations GI: Mild pelvic pain, Right flank pain : mild dysuria and urinary frequency, mild burning sensation Musculoskeletal: mild myalgias and joint pain Skin: Denies rash and pruritus. Neurological: Denies dizziness, headache, vision or hearing problems Changes from previous H/P or p: No Changes Objective vital signs Vital Sign Date Time Temp Pulse Resp B/P (MAP) Pulse Ox O2 Delivery O2 Flow Rate FiO2 05/12/25 10:00 100 18 125/80 05/12/25 09:00 98.3 99 98.3 05/12/25 08:00 Room Air* 0 21 Total Intake and Output 05/11/25 05/11/25 05/12/25 15:00 23:00 07:00 Intake Total 950 ml 250 ml Balance 950 ml 250 ml medications Current Medications Medications Dose Ordered Sig/Finn Route Start Time Stop Time Status Last Admin Dose Admin Ceftriaxone Sodium 50 ml @ 100 mls/hr Q24H IV 05/11/25 15:30 05/11/25 14:32 100 MLS/HR Acetaminophen/ Hydrocodone Bitart 1 tab Q4HP PRN PO 05/10/25 20:15 05/11/25 14:32 1 TAB Temazepam 15 mg QHSP PRN PO 05/10/25 20:15 Ondansetron HCl 4 mg Q4HP PRN IV 05/10/25 20:15 Acetaminophen 650 mg Q6HP PRN PO 05/10/25 20:15 Morphine Sulfate 2 mg Q6HPRN PRN IV 05/10/25 20:15 05/12/25 10:00 2 MG Guaifenesin/ Dextromethorphan 10 ml Q4HP PRN PO 05/10/25 23:30 05/11/25 14:55 10 ML Nifedipine 30 mg DAILY PO 05/11/25 10:00 05/12/25 09:59 30 MG Oseltamivir Phosphate 75 mg Q12HR PO 05/11/25 22:00 05/16/25 21:59 05/12/25 09:59 75 MG Pantoprazole Sodium 40 mg DAILY@0600 PO 05/12/25 06:00 Examination General: Patient alert and oriented in person, place and time. Patient following commands. HEENT: Normocephalic, atraumatic, moist mucous membranes, Respiratory/pulmonary: Clear lungs bilaterally, vesicular murmurs present in almost all lung hobson, no associated crackles or wheezes. Cardiovascular: Normal heart sounds S1 and S2 with no associated murmurs Abdomen: Abdomen nondistended, there is pain to palpation in the right flank. Extremities: There is no peripheral edema present at the lower extremities. Peripheral Pulses: 3+ Radial (R). 3+ Radial (L). 3+ Dorsalis pedis (R). 3+ Dorsalis pedis(L) Skin: No rashes or pruritus, there is no sacral edema present at this time. Neurological: Intact cranial nerves with no focal neurologic deficits laboratory and microbiology Laboratory Tests 05/10/25 15:42 Test 05/10/25 15:42 Range/Units Serum Glucose 119 H 74-106 mg/dL Microbiology Date/Time Source Procedure Growth Status 05/10/25 15:42 Blood Blood Culture - Preliminary NO GROWTH AFTER 24 HOURS OF INCUBATION. Resulted 05/10/25 15:00 Voided Urine Urine Culture - Preliminary Resulted Problem List/Assessment/Plan Problem List/Assessment/Plan Influenza Plan: Influenza type A and B serology positive chest xray was normal Tamiflu 75mg p.o B.i.d Chronic normocytic anemia plan:outpatient follow up with PCP Acute complicated Cystitis plan: urinalysis consistent with UTI culture shows mixed manoj IV ceftriaxone 1g daily Hypertensive Heart disease plan: nifedipine 30mg p.o daily Plan discussed with patient and nurse case discussed with Dr. Desai Plan discussed with: Patient Date of Service: May 12, 2025 Billing Provider: POONAM DESAI MD Common Visit Codes: [id number] INP/OBS CARE(MOD) GIOVANNA WALLER RESIDENT May 12, 2025 14:27 POONAM DESAI MD May 12, 2025 21:14
[2025-05-13 01:00] VITALS: BP 126/77; PULSE 93; RESP 17; TEMP 98.7; O2SAT 100
[2025-05-13 05:00] VITALS: BP 101/63; PULSE 66; RESP 16; TEMP 98.6; O2SAT 98
[2025-05-13 08:20] VITALS: PULSE 94; RESP 18; O2SAT 99
[2025-05-13] MEDS ORDERED: TAMIFLU PO (08:48)
[2025-05-13] MEDS ORDERED: CEPH250C PO (08:48)
[2025-05-13 09:00] VITALS: BP 152/99; PULSE 93; RESP 17; TEMP 98.3; O2SAT 99
[2025-05-13 09:48] VITALS: BP 125/80
--- NOTE | 2025-05-13 14:43 | DVHDSRES ---
Discharge Summary Date of Admission Resident Creating Document: GIOVANNA WALLER RESIDENT May 10, 2025 at 20:04 Date of Discharge: May 13, 2025 Admitting Diagnosis urinary tract infection Labs/Diagnostic Data: Laboratory Results Test 05/11/25 10:00 05/11/25 03:45 05/10/25 15:42 05/10/25 15:00 SARS-CoV-2 Antigen (Rapid) Negative (NEGATIVE) Influenza Type A Antigen Positive (Negative) Influenza Type B Antigen Positive (Negative) White Blood Count 4.3 10^3/uL (4.4-10.8) Red Blood Count 3.80 10^6/uL (4.0-5.20) Hemoglobin 10.9 g/dL (12.2-16.2) Hematocrit 33.1 % (36.0-46.0) Mean Corpuscular Volume 87.1 fL (80.0-100.0) Mean Corpuscular Hemoglobin 28.8 pg (28.0-32.0) Mean Corpuscular Hemoglobin Concent 33.0 g/dL (32.0-36.0) Red Cell Distribution Width 14.2 % (11.8-14.3) Platelet Count 369 10^3/uL (140-450) Mean Platelet Volume 6.7 fL (6.9-10.8) Neutrophils (%) (Auto) 43.8 % (37.0-80.0) Lymphocytes (%) (Auto) 38.2 % (10.0-50.0) Monocytes (%) (Auto) 13.6 % (0.0-12.0) Eosinophils (%) (Auto) 3.2 % (0.0-7.0) Basophils (%) (Auto) 1.2 % (0.0-2.0) Neutrophils # (Auto) 1.9 10 ^3/uL (1.6-8.6) Lymphocytes # (Auto) 1.6 10 ^3/uL (0.4-5.4) Monocytes # (Auto) 0.6 10 ^3/uL (0-1.3) Eosinophils # (Auto) 0.1 10 ^3/uL (0-0.8) Basophils # (Auto) 0.1 10 ^3/uL (0-0.2) Nucleated Red Blood Cells 0.1 % Sodium Level 140 mmol/L (136-145) Potassium Level 3.6 mmol/L (3.5-5.1) Chloride Level 108 mmol/L (98-107) Carbon Dioxide Level 20 mmol/L (20-31) Anion Gap 12 (5-15) Blood Urea Nitrogen 9 mg/dL (9-23) Creatinine 0.75 mg/dL (0.550-1.02) Glomerular Filtration Rate Calc 99 mL/min (>90) BUN/Creatinine Ratio 12.0 (10.0-20.0) Serum Glucose 119 mg/dL (74-106) Lactic Acid Level 2.0 mmol/L (0.4-2.0) Calcium Level 8.8 mg/dL (8.7-10.4) Urine Color Yellow (Yellow) Urine Clarity Turbid (Clear) Urine pH 6.0 (5.0-9.0) Urine Specific [place] 1.015 (1.001-1.035) Urine Protein Trace (Negative) Urine Ketones Negative (Negative) Urine Blood Negative /uL (Negative) Urine Nitrite Negative (Negative) Urine Bilirubin Negative (Negative) Urine Urobilinogen Normal mg/dL (Negative) Urine Leukocyte Esterase 1+ /uL (Negative) Urine RBC 3 /hpf (0 - 4) Urine Microscopic WBC 54 /HPF (0-5) Urine Squamous Epithelial Cells Few /hpf (<5) Urine Bacteria Mod /hpf (None Seen) Urine Mucus Few (None Seen) Urine Glucose Normal mg/dL (Normal) Other Laboratory Tests 05/10/25 15:42 Brief Hx & Hospital Course: This is a 49-year-old female with past medical history of hypertension presented to the ED with chief complaints of generalized body ache, flu-like symptoms, and burning sensation in urine, she reports recently coming back from a cruise. P atient had dysuria and flank pain. She denied fever nausea vomiting abdominal pain patient was treated for UTI a few weeks ago with oral antibiotics but the symptoms did not resolve. Patient was tested positive for Influenza type a and B, covid negative, and blood culture negative. Chest xray was normal. Today during rounds patient reports feeling better discharge plan was discussed with the patient and she is going home. She is instructed to continue home meds. Patient was given Tamiflu 75 mg p.o. b.i.d. and Keflex. Condition at Discharge: Good Final Diagnosis/Problems List Influenza A and B infection Acute complicated Cystitis Discharge Disposition: Home Discharge Instruct/Medications Diet: Cardiac 2g Na,low cholest Activity: No Restrictions, As Tolerated Follow Up/Referral: Follow up with DC clinic in 1 to 2 weeks Medications: As per EMR Scheduled Cephalexin (Keflex Capsule), 250 MG PO Q6HR Medroxyprogesterone Acetate (Provera), 2 TAB PO DAILY Nifedipine (Nifedipine Er), 1 TAB PO DAILY Norgestrel & Ethinyl Estradiol (Low-Ogestrel 0.3-30 mg-Mcg), 1 TAB PO DAILY Oseltamivir Phosphate (Tamiflu), 75 MG PO BID Scheduled PRN Gabapentin (Once-Daily) (Gabapentin), 300 MG PO Q6HP PRN Discontinued Medications Cefdinir (Cefdinir), 1 CAP PO BID Ciprofloxacin Hcl (Cipro), 1 TAB PO BID Ibuprofen (Ibuprofen), 600 MG PO TID Ibuprofen (Ibuprofen), 1 TAB PO TID PRN Sulfamethoxazole W/Trimethopri (Bactrim Ds Tablet), 1 TAB PO BID Tramadol HCl (Tramadol HCl), 50 MG PO Q12HP PRN Discharge Statement: "Patient was advised to return to the ER or call 911 if any headaches, dizziness, shortness of breath, chest pain, abdominal pain, bleeding, fevers, or worsening of medical condition. Patient was counseled about treatment plan, medications, possible side effects, patientverbalized understanding. All questions were answered to the best of my ability. This discharge took greater then 30 minutes in planning, reviewing documentation, counseling the patient, and discussing with other team members." ASSESSMENT ASSESSMENT Assessment Influenza A and B infection Acute complicated Cystitis Date of Service: May 13, 2025 Billing Provider: POONAM DESAI MD Common Visit Codes: 52809-JUB/OBS DISCH DAY >30min GIOVANNA WALLER RESIDENT May 13, 2025 14:43 POONAM DESAI MD May 14, 2025 08:39
== END 2025-05-13 12:10 | disposition home or self-care (01) | DRG 463 ==
LOC: ER 14:53 → OVERFLOW 20:04 → EAST 05-11 09:32
PROVIDERS: ADMIT Student in an Organized Health Care Education/Training Program; ATTEND Emergency Medicine
DX: N10 Acute pyelonephritis (principal); R65.10 Systemic inflammatory response syndrome (SIRS) of non-infectious origin without acute organ dysfunction; I11.9 Hypertensive heart disease without heart failure; B34.9 Viral infection, unspecified; E66.01 Morbid (severe) obesity due to excess calories; Z68.38 Body mass index [BMI] 38.0-38.9, adult; D64.9 Anemia, unspecified; J10.1 Influenza due to other identified influenza virus with other respiratory manifestations; Z20.822 Contact with and (suspected) exposure to COVID-19; K21.9 Gastro-esophageal reflux disease without esophagitis
CPT/HCPCS: 36415; 71045; 80048; 81001; 83605; 85025; 87040; 87086; 87426; 87804; 96365; 96375; G0378; J1100; J1885; J2405

== ENCOUNTER 2025-09-20 14:43 | Emergency (ER) | payer MEDICAID ==
[~2025-09-20] VITALS: Ht 152.4 cm; Wt 88.0 kg
[~2025-09-20 14:43] MED LIST changes: -BACDST PO; +CEPH250C PO; -CIPR-173 PO; -IBUP-1454 PO; -IBUP-1456 PO; +TAMIFLU PO; -TRAM-626 PO
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
[2025-09-20 16:28] LABS: Urine Protein, UAD 1+ (Negative)
[2025-09-20 16:40] LABS: Hematocrit 32.9 % (36.0-46.0); Hemoglobin 10.4 g/dL (12.2-16.2); Mean Corpuscular Hemoglobin 26.8 pg (28.0-32.0); Mean Corpuscular Volume 85.1 fL (80.0-100.0); Nucleated Red Blood Cells % 0.1 %
[2025-09-20 16:49] LABS: Carbon Dioxide 22 mmol/L (20-31)
[2025-09-20 16:50] LABS: Anion Gap 4 (5-15); Potassium 3.9 mmol/L (3.5-5.1); Sodium 138 mmol/L (136-145)
[2025-09-20 16:55] LABS: BUN/Creatinine Ratio 10.4 (10.0-20.0); Glucose 88 mg/dL (74-106)
[2025-09-20 16:56] LABS: Blood Urea Nitrogen 8 mg/dL (9-23); Calcium 8.6 mg/dL (8.7-10.4); Chloride 112 mmol/L (98-107)
[2025-09-20] MEDS ORDERED: CIPR-173 PO (17:13)
[2025-09-20] MEDS ORDERED: HYDR-4902 PO (17:13)
[2025-09-20] MEDS: HYDROcodone-ACET 10/325MG TAB PO ONE (19:00)
[2025-09-20] MEDS: BACLOFEN 10 MG TAB PO ONE (19:00)
[2025-09-20 19:12] VITALS: BP 154/101; PULSE 91; RESP 16; TEMP 98.2; O2SAT 97
--- NOTE | 2025-09-21 05:56 | ECG ---
[facility] Test Date: 2025-09-20 Test Time: 15:01:47 Pat Name: KATY MIKE Department: [facility] ED Patient ID: [id number] Room: Gender: F Quality Assurance Coordinator: DR VILLASENOR: 1975 Requested By: SAMANTHA RESTREPO Order Number: [id number] Reading MD: Familia Lopez Measurements Intervals [place] Rate: 121 P: 65 [place]: 99 QRS: 54 QRSD: 79 T: 2 QT: 317 QTc: 450 Interpretive Statements Sinus tachycardia Borderline T abnormalities, anterior leads Electronically Signed On 09-21-2025 11:00:18 PST by Familia Lopez Please click the below link to view image of tracing.
== END 2025-09-20 19:37 | disposition home or self-care (01) ==
LOC: ER 14:43
DX: N39.0 Urinary tract infection, site not specified (principal); R25.2 Cramp and spasm; F10.90 Alcohol use, unspecified, uncomplicated; Z79.899 Other long term (current) drug therapy; Z90.49 Acquired absence of other specified parts of digestive tract; Z98.890 Other specified postprocedural states
CPT/HCPCS: 36415; 80048; 81001; 85025; 93005

== ENCOUNTER 2025-09-25 11:48 | Emergency (ER) | payer MEDICAID ==
[~2025-09-25] VITALS: Ht 154.9 cm; Wt 86.7 kg
[~2025-09-25 11:48] MED LIST changes: +CIPR-173 PO; +HYDR-4902 PO
[2025-09-25 12:46] LABS: Urine Budding Yeast OCCASIONAL /hpf (None Seen); Urine Protein, UAD 1+ (Negative)
[2025-09-25] MEDS ORDERED: PROM1SOL4 PO (13:06)
[2025-09-25] MEDS ORDERED: BACDST PO (13:06)
--- NOTE | 2025-09-25 13:08 | ED.PDOC ---
General HPI Comments A 49 YEAR OLD FEMALE PRESENTS TO THE ED WITH COMPLAINT OF UTI SYMPTOMS. PATIENT STATES SHE HAS BEEN EXPERIENCING PAINFUL URINATION, URINARY URGENCY, AND SUPRAPUBIC PRESSURE FOR THE PAST 2 WEEKS. PATIENT REPORTS SHE CAME TO THIS ED FOR THIS COMPLAINT 5 DAYS AGO WHERE SHE WAS PRESCRIBED CIPRO 500 MG, BUT NOTES THERE HAS BEEN NO IMPROVEMENT IN HIS SYMPTOMS. PATIENT IS ALSO REQUESTING COUGH MEDICINE SHE STATES SHE HAS BEEN EXPERIENCING A COUGH FOR THE PAST 3 DAYS. PATIENT DENIES HEMATURIA, FLANK PAIN, FEVER, CHILLS, SHORTNESS OF BREATH, CHEST PAIN, ABDOMINAL PAIN, NAUSEA, VOMITING, HEADACHE, OR OTHER COMPLAINTS. NO OTHER SYMPTOMS OR MODIFYING FACTORS AT THIS TIME. PATIENT IS ALERT, ORIENTED X 4, AND HAS STEADY GAIT. Chief Complaint: Urinary Time Seen by MD: 11:53 Primary Care Provider: OOA Reviewed notes: Nurses Notes, Medications, Allergies Allergies: Coded Allergies: NO KNOWN ALLERGIES (Unverified , 02/04/24) Home Meds Active Scripts Promethazine-Dm (Promethazine Dm 6.25-15 mg/5Ml) 1 Candy Candy, 5 ML PO TID, #160 ML Prov:KIMBERLEE LAINEZ 09/25/25 Sulfamethoxazole W/Trimethopri (Bactrim Ds Tablet) 1 Tab Tb, 1 TAB PO BID for 10 Days, #20 TAB Prov:KIMBERLEE LAINEZ 09/25/25 Ciprofloxacin Hcl (Cipro) 500 Mg Tab, 1 TAB PO BID, #14 TAB Prov:SAMANTHA RESTREPO MD 09/20/25 Hydrocodone-Acetaminophen (Hydrocodone Bitartrate/AC 5-325 mg) 1 Tab Tab, 1 TAB PO Q8HP PRN for 5 Days, #15 TAB Prov:SAMANTHA RESTREPO MD 09/20/25 Cephalexin (KEFLEX CAPSULE) 250 Mg Cp, 250 MG PO Q6HR for 3 Days, #12 CAP Prov:ABDI COOK 05/13/25 Oseltamivir Phosphate (Tamiflu) 75 Mg Cap, 75 MG PO BID for 3 Days, #6 CAP Prov:ABDI COOK RESIDENT 05/13/25 Gabapentin (Once-Daily) (Gabapentin) 300 Mg Tab, 300 MG PO Q6HP PRN, #30 TAB Prov:BRE DICKEY MD 04/16/25 Norgestrel & Ethinyl Estradiol (Low-Ogestrel 0.3-30 mg-Mcg) 1 Tab Tab, 1 TAB PO DAILY for 90 Days, #90 TAB 3 Refills Prov:BRE DICKEY MD 04/15/25 Medroxyprogesterone Acetate (PROVERA) 5 Mg Tab, 2 TAB PO DAILY, #3 TAB 11 Refills Prov:SHANE RAHMAN MD 04/11/25 Nifedipine (Nifedipine Er) 30 Mg Tab, 1 TAB PO DAILY for 30 Days, #30 TAB 1 Refill Prov:PATRICK HERNANDEZ RESIDENT 10/01/24 Information Source: Patient Mode of Arrival: Ambulatory Severity: Moderate Inability to void: None Timing: Days, Weeks Duration: Since onset, Days Prehospital treatment: None Onset: Spontaneous Symptoms: Dysuria, Frequency, Urgency History of: UTI Location: Suprapubic Modifying factors: None associated signs and symptoms: Dysuria Past Medical History PAST MEDICAL HISTORY: Denies Surgical History: Cholecystectomy, , Hernia Repair 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 Family History Family History: Reviewed,noncontributory to illness, Family hx of DM, Family hx of HTN Social History Smoker: Non-Smoker Alcohol: Occasionally Drugs: Denies Drug Use Lives In: Home Constitutional: denies: chills, diaphoresis, fatigue, fever, malaise, sweats, weakness, others EENTM: reports: nose congestion; denies: blurred vision, double vision, ear bleeding, ear discharge, ear drainage, ear pain, ear ringing, eye pain, eye redness, hearing loss, mouth pain, mouth swelling, nasal discharge, nose bleeding, nose pain, photophobia, tearing, throat pain, throat swelling, voice changes, others Respiratory: reports: cough; denies: hemoptysis, orthopnea, SOB at rest, shortness of breath, SOB with excertion, stridor, wheezing, others Cardiovascular: denies: chest pain, dizzy spells, diaphoresis, Dyspnea on exertion, edema, irregular heart beat, left arm pain, lightheadedness, palpitations, PND, syncope, others Gastrointestinal: denies: abdomen distended, abdominal pain, blood streaked bowels, constipated, diarrhea, dysphagia, difficulty swallowing, hematemesis, melena, nausea, poor appetite, poor fluid intake, rectal bleeding, rectal pain, vomiting, others Genitourinary: reports: burning, dysuria, pain (SUPRAPUBIC PRESSURE); denies: abnormal vagina bleeding, dyspareunia, flank pain, frequency, hematuria, incontinence, , vagina discharge, urgency, others Neurological: denies: dizziness, fainting, headache, left sided numbness, left sided weakness, numbness, paresthesia, pre-existing deficit, right sided numbness, right sided weakness, seizure, speech problems, tingling, tremors, weakness, others Musculoskeletal: denies: back pain, gout, joint pain, joint swelling, muscle pain, muscle stiffness, neck pain, others Integumetry: denies: bruises, change in color, change in hair/nails, dryness, laceration, lesions, lumps, rash, wounds, others Allergic/Immunocompromised: denies: Difficulty Healing, Frequent Infections, Hives, Itching, others Hematologic/Lymphatic: denies: anemia, blood clots, easy bleeding, easy bruising, swollen glands, others Endocrine: denies: excessive hunger, excessive sweating, excessive thirst, excessive urination, flushing, intolerance to cold, intolerance to heat, unexplained weight gain, unexplained weight loss, others Psychiatric: denies: anxiety, bipolar disorder, depression, hopeless, panic disorder, schizophrenia, sleepless, suicidal, others All Other Systems: Reviewed and Negative Physical Exam General Appearance: No Apparent Distress, Normal HEENT: Normal ENT Inspection, PERRL/EOMI, Pharynx Normal, TMs Normal Neck: Full Range of Motion, Non-Tender, Normal, Normal Inspection Respiratory: Chest Non-Tender, Lungs Clear, No Accessory Muscle Use, No Respiratory Distress, Normal Breath Sounds Cardiovascular: No Edema, No JVD, No Murmur, No Gallop, Normal Peripheral Pulses, Regular Rate/Rhythm Breast Exam: Deferred Gastrointestinal: No Organomegaly, Non Tender, No Pulsatile Mass, Normal Bowel Sounds, Soft, Suprapubic (PRESSURE, NO GUARDING AND REBOUND TENDERNESS. ) Genitalia: Deferred Pelvic: Normal External Exam, Tender Uterus Rectal: Deferred Extremities: No calf tenderness, Normal capillary refill, Normal inspection, Normal range of motion, Non-tender, No pedal edema Musculoskeletal : Apperance: Normal Neurologic: Alert, mill washer II-XII nml as Tested, No Motor Deficits, Normal Affect, Normal Mood, No Sensory Deficits Cerebellar Function: Normal Reflexes: Normal Skin: Dry, Normal Color, Warm Peripheral Pulses: 2+ carotid (R), 2+ carotid (L) Lymphatic: No Adenopathy Was a procedure done? Was a procedure done?: No Differential Diagnosis Kidney stone (Female): N/A Kidney stone (Male): N/A Penile/Scrotal: N/A Urinary Problem (Male): N/A Urinary Problem (Female): Pyelonephritis, Urolithiasis, UTI, Vaginitis X-Ray, Labs, Meds, VS Vital Signs Date Time Temp Pulse Resp B/P (MAP) Pulse Ox O2 Delivery O2 Flow Rate FiO2 09/25/25 13:22 92 18 98 Room Air 09/25/25 13:22 97.8 92 18 152/91 (111) 98 97.8 09/25/25 11:50 97.8 92 18 152/91 98 97.8 Lab Test 09/25/25 12:28 Range/Units Urine Color Dark-orange Yellow Urine Clarity Turbid H Clear Urine pH 6.0 5.0-9.0 Urine Specific [place] 1.018 1.001-1.035 Urine Protein 1+ H Negative Urine Ketones Negative Negative Urine Blood 2+ H Negative /uL Urine Nitrite 2+ H Negative Urine Bilirubin 2+ H Negative Urine Urobilinogen 4 H Negative mg/dL Urine Leukocyte Esterase Negative Negative /uL Urine RBC 4 0 - 4 /hpf Urine Microscopic WBC 64 H 0-5 /HPF Urine Squamous Epithelial Cells Mod <5 /hpf Urine Bacteria Few H None Seen /hpf Urine Mucus Few None Seen Urine Yeast (Budding) Occasional None Seen /hpf Urine Glucose Normal Normal mg/dL Current Medications Medications (Trade) Dose Ordered Sig/Finn Route Start Time Stop Time Status Last Admin Ceftriaxone Sodium (Rocephin) 1,000 mg ONCE ONCE IM 09/25/25 13:15 09/25/25 13:16 DC 09/25/25 13:19 X-Ray, Labs, Meds, VS Comment EXTERNAL MEDICAL RECORDS REVIEWED: [NONE] INDEPENDENT HISTORIANS: [NONE] SOCIAL DETERMINANTS OF HEALTH: [NONE] LABS ORDERED: UA REVIEWED AND INTERPRETED RESULTS: NITRITES 2+ IMAGING ORDERED: NONE TREATMENTS ORDERED: ROCEPHIN 1 G IM PROCEDURES PERFORMED: NONE CRITICAL CARE TIME: NONE I HAVE DISCUSSED THE PATIENT WITH THE ATTENDING PHYSICIAN DR. RESTREPO AND HE AGREES WITH THE PATIENT'S PLAN OF CARE AND DISPOSITION. BASED ON HISTORY OF PRESENT ILLNESS, AND PHYSICAL EXAM, PATIENT WILL BE DISCHARGED HOME. DISCUSSED PLAN FOR DISCHARGE HOME WITH RX [SEPTRA DS AND PHENERGAN DM]. MEDICATION WARNINGS GIVEN. SHARED DECISION MAKING: PATIENT INSTRUCTED TO FOLLOW UP WITH PRIMARY CARE PROVIDER IN 1-2 DAYS FOR RE-EVALUATION OF SYMPTOMS. PATIENT VERBALIZES UNDERSTANDING TO RETURN TO ED FOR NEW OR WORSENING SYMPTOMS OR IF FOLLOW UP WITH PCP CANNOT BE OBTAINED. PATIENT FEELS COMFORTABLE GOING HOME AT THIS TIME. ALL QUESTIONS ADDRESSED AT TIME OF DISCHARGE. Time of 1ST Reevaluation: 13:40 Reevaluation 1ST: Improved Patient Education/Counseling: Diagnosis, Treatment, Need For Follow Up Family Education/Counseling: Diagnosis, Treatment, Need For Follow Up Medical Screening: No EMC Exist At This Time SEPSIS Sepsis Screen Date sepsis recognized/suspect: Sep 25, 2025 Time Sepsis recognized/suspect: 1151 Recent Procedure: No On Antibiotic Therapy: No Respiratory Rate >20: No Heart Rate >90: Yes Temp<36 C (96.8 F) or >38.3 C: No SBP <90 or MAP <65 mmHG: No New Acute Mental Status Change: No Is the patient on CPAP, BIPAP,: No Vital Signs Date Time Temp Pulse Resp B/P (MAP) Pulse Ox O2 Delivery O2 Flow Rate FiO2 09/25/25 13:22 92 18 98 Room Air 09/25/25 13:22 97.8 92 18 152/91 (111) 98 97.8 09/25/25 11:50 97.8 92 18 152/91 98 97.8 Medications Medications Dose Ordered Sig/Finn Route Start Time Stop Time Status Last Admin Dose Admin Ceftriaxone Sodium 1,000 mg ONCE ONCE IM 09/25/25 13:15 09/25/25 13:16 DC 09/25/25 13:19 Lidocaine HCl 20 ml STK-MED ONCE .ROUTE 09/25/25 13:11 09/25/25 13:11 DC 09/25/25 13:17 Departure 1 Departure Time of Disposition: 13:40 Impression: Primary Impression: Acute UTI (urinary tract infection) Additional Impression: Cough Qualified Codes: R05.1 - Acute cough Disposition: 01 HOME / SELF CARE / HOMELESS Condition: Stable Additional Instructions: FOLLOW-UP WITH PCP IN 1 TO 2 DAYS. TAKE MEDICATIONS PRESCRIBED. RETURN TO ED FOR ANY NEW OR WORSENING SYMPTOMS. e-Prescriptions Promethazine-Dm (Promethazine Dm 6.25-15 mg/5Ml) 1 Candy Candy 5 ML PO TID, #160 ML Prov: KIMBERLEE LAINEZ 09/25/25 Sulfamethoxazole W/Trimethopri (Bactrim Ds Tablet) 1 Tab Tb 1 TAB PO BID for 10 Days, #20 TAB Prov: KIMBERLEE LAINEZ 09/25/25 Discharged With: Self Critical Care Note Critical Care Time?: No Stability Stability form required: No I personally scribed for KIMBERLEE LAINEZ ([email or web address]) on 09/25/25 at 13:08. Teresa ctronically submitted by Aryan Carr ([email or web address]). KIMBERLEE LAINEZ Sep 25, 2025 13:08
[2025-09-25] MEDS: LIDOCAINE 1% HCL (LOCAL ANESTH.) INJ 20ML MDV ONE (13:17)
[2025-09-25] MEDS: cefTRIAXone SOD 1,000 MG VL IM ONE (13:19)
[2025-09-25 13:22] VITALS: BP 152/91; PULSE 92; RESP 18; TEMP 97.8; O2SAT 98
== END 2025-09-25 13:28 | disposition home or self-care (01) ==
LOC: ER 11:48
DX: N39.0 Urinary tract infection, site not specified (principal); Z79.899 Other long term (current) drug therapy; Z87.440 Personal history of urinary (tract) infections; Z90.49 Acquired absence of other specified parts of digestive tract; Z98.890 Other specified postprocedural states
CPT/HCPCS: 81001; 96372; 99283; J0696; J2003

== ENCOUNTER 2025-11-07 16:22 | Inpatient (IN) | payer MEDICAID ==
[~2025-11-07] VITALS: Ht 154.9 cm; Wt 94.8 kg
[~2025-11-07 16:22] MED LIST changes: +BACDST PO; +PROM1SOL4 PO
[2025-11-07 18:47] LABS: Hematocrit 33.7 % (36.0-46.0); Hemoglobin 10.7 g/dL (12.2-16.2); Mean Corpuscular Hemoglobin 27.2 pg (28.0-32.0); Mean Corpuscular Volume 86.1 fL (80.0-100.0); Nucleated Red Blood Cells % 0.1 %
--- NOTE | 2025-11-07 18:49 | ED.PDOC ---
HPI Comments 49-year-old female who came to ER for chest pains. Patient states for the past week he has been having intermittent episodes of midsternal chest pains, associated headaches, and throat pain/swelling. Blood pressure upon arrival was 169/120 Hg. Persistence of chest pains prompted checkup Chief Complaint: Chest Pain Time Seen by MD: 18:48 Primary Care Provider: KalpeshOA Reviewed Notes: Nurses Notes Allergies: Coded Allergies: NO KNOWN ALLERGIES (Unverified , 02/04/24) Home Meds Active Scripts Promethazine-Dm (Promethazine Dm 6.25-15 mg/5Ml) 1 Candy Candy, 5 ML PO TID, #160 ML Prov:KIMBERLEE LAINEZ 09/25/25 Sulfamethoxazole W/Trimethopri (Bactrim Ds Tablet) 1 Tab Tb, 1 TAB PO BID for 10 Days, #20 TAB Prov:KIMBERLEE LAINEZ 09/25/25 Ciprofloxacin Hcl (Cipro) 500 Mg Tab, 1 TAB PO BID, #14 TAB Prov:SAMANTHA RESTREPO MD 09/20/25 Hydrocodone-Acetaminophen (Hydrocodone Bitartrate/AC 5-325 mg) 1 Tab Tab, 1 TAB PO Q8HP PRN for 5 Days, #15 TAB Prov:SAMANTHA RESTREPO MD 09/20/25 Cephalexin (KEFLEX CAPSULE) 250 Mg Cp, 250 MG PO Q6HR for 3 Days, #12 CAP Prov:ABDI COOK RESIDENT 05/13/25 Oseltamivir Phosphate (Tamiflu) 75 Mg Cap, 75 MG PO BID for 3 Days, #6 CAP Prov:ABDI COOK RESIDENT 05/13/25 Gabapentin (Once-Daily) (Gabapentin) 300 Mg Tab, 300 MG PO Q6HP PRN, #30 TAB Prov:BRE DICKEY MD 04/16/25 Norgestrel & Ethinyl Estradiol (Low-Ogestrel 0.3-30 mg-Mcg) 1 Tab Tab, 1 TAB PO DAILY for 90 Days, #90 TAB 3 Refills Prov:BRE DICKEY MD 04/15/25 Medroxyprogesterone Acetate (PROVERA) 5 Mg Tab, 2 TAB PO DAILY, #3 TAB 11 Refills Prov:SHANE RAHMAN MD 04/11/25 Nifedipine (Nifedipine Er) 30 Mg Tab, 1 TAB PO DAILY for 30 Days, #30 TAB 1 Refill Prov:PATRICK HERNANDEZ RESIDENT 10/01/24 Information Source: Patient Mode of Arrival: Ambulatory Past Medical History PAST MEDICAL HISTORY: HTN Surgical History: Cholecystectomy, , Hernia Repair 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 Family History Family History: Reviewed,noncontributory to illness, Family hx of DM, Family hx of HTN Social History Smoker: Non-Smoker Alcohol: Occasionally Drugs: Denies Drug Use Lives In: Home Constitutional: denies: chills, diaphoresis, fatigue, fever, malaise, sweats, weakness, others EENTM: reports: throat pain, throat swelling; denies: blurred vision, double vision, ear bleeding, ear discharge, ear drainage, ear pain, ear ringing, eye pain, eye redness, hearing loss, mouth pain, mouth swelling, nasal discharge, nose bleeding, nose congestion, nose pain, photophobia, tearing, voice changes, others Respiratory: denies: cough, hemoptysis, orthopnea, SOB at rest, shortness of breath, SOB with excertion, stridor, wheezing, others Cardiovascular: reports: chest pain; denies: dizzy spells, diaphoresis, Dyspnea on exertion, edema, irregular heart beat, left arm pain, lightheadedness, palpitations, PND, syncope, others Gastrointestinal: denies: abdomen distended, abdominal pain, blood streaked bowels, constipated, diarrhea, dysphagia, difficulty swallowing, hematemesis, melena, nausea, poor appetite, poor fluid intake, rectal bleeding, rectal pain, vomiting, others Genitourinary: denies: abnormal vagina bleeding, burning, dyspareunia, dysuria, flank pain, frequency, hematuria, incontinence, pain, , vagina discharge, urgency, others Neurological: reports: headache; denies: dizziness, fainting, left sided numbness, left sided weakness, numbness, paresthesia, pre-existing deficit, right sided numbness, right sided weakness, seizure, speech problems, tingling, tremors, weakness, others Musculoskeletal: denies: back pain, gout, joint pain, joint swelling, muscle pain, muscle stiffness, neck pain, others Integumetry: denies: bruises, change in color, change in hair/nails, dryness, laceration, lesions, lumps, rash, wounds, others Allergic/Immunocompromised: denies: Difficulty Healing, Frequent Infections, Hives, Itching, others Hematologic/Lymphatic: denies: anemia, blood clots, easy bleeding, easy bruising, swollen glands, others Endocrine: denies: excessive hunger, excessive sweating, excessive thirst, excessive urination, flushing, intolerance to cold, intolerance to heat, unexplained weight gain, unexplained weight loss, others Psychiatric: denies: anxiety, bipolar disorder, depression, hopeless, panic disorder, schizophrenia, sleepless, suicidal, others Physical Exam General Appearance: No Apparent Distress, Normal HEENT: Normal ENT Inspection, Pharynx Normal, TMs Normal Neck: Full Range of Motion, Non-Tender, Normal, Normal Inspection Respiratory: Chest Non-Tender, Lungs Clear, No Accessory Muscle Use, No Respiratory Distress, Normal Breath Sounds Cardiovascular: No Edema, No JVD, No Murmur, No Gallop, Normal Peripheral Pulses, Regular Rate/Rhythm Breast Exam: Deferred Gastrointestinal: No Organomegaly, Non Tender, No Pulsatile Mass, Normal Bowel Sounds, Soft Genitalia: Deferred Pelvic: Deferred Rectal: Deferred Extremities: No calf tenderness, Normal capillary refill, Normal inspection, Normal range of motion, Non-tender, No pedal edema Musculoskeletal : Apperance: Normal Neurologic: Alert, soda fountain manager II-XII nml as Tested, No Motor Deficits, Normal Affect, Normal Mood, No Sensory Deficits Cerebellar Function: Normal Reflexes: Normal Skin: Dry, Normal Color, Warm Lymphatic: No Adenopathy Was a procedure done? Was a procedure done?: No CP Differential Dx Differential Diagnosis: Angina, Anxiety / Panic Attack Differential Diagnosis: Angina, Chest Wall Pain, Costochondritis, Esophageal reflux/spasm, Gastritis, Myocardial Infarction X-Ray, Labs, Meds, VS Vital Signs Date Time Temp Pulse Resp B/P (MAP) Pulse Ox O2 Delivery O2 Flow Rate FiO2 11/07/25 20:12 98.1 95 19 169/97 (121) 99 98.1 11/07/25 20:12 95 19 99 Room Air 11/07/25 19:42 98.6 100 16 180/107 (131) 97 98.6 11/07/25 16:35 93 11/07/25 16:24 98.4 96 17 169/120 100 98.4 Lab Test 11/07/25 18:50 12/27/25 16:45 Range/Units Troponin I High Sensitivity 6 7 </=34 ng/L White Blood Count 6.7 4.4-10.8 10^3/uL Red Blood Count 3.92 L 4.0-5.20 10^6/uL Hemoglobin 10.7 L 12.2-16.2 g/dL Hematocrit 33.7 L 36.0-46.0 % Mean Corpuscular Volume 86.1 80.0-100.0 fL Mean Corpuscular Hemoglobin 27.2 L 28.0-32.0 pg Mean Corpuscular Hemoglobin Concent 31.6 L 32.0-36.0 g/dL Red Cell Distribution Width 16.2 H 11.8-14.3 % Platelet Count 342 140-450 10^3/uL Mean Platelet Volume 7.5 6.9-10.8 fL Neutrophils (%) (Auto) 62.6 37.0-80.0 % Lymphocytes (%) (Auto) 22.8 10.0-50.0 % Monocytes (%) (Auto) 12.0 0.0-12.0 % Eosinophils (%) (Auto) 1.8 0.0-7.0 % Basophils (%) (Auto) 0.8 0.0-2.0 % Neutrophils # (Auto) 4.2 1.6-8.6 10 ^3/uL Lymphocytes # (Auto) 1.5 0.4-5.4 10 ^3/uL Monocytes # (Auto) 0.8 0-1.3 10 ^3/uL Eosinophils # (Auto) 0.1 0-0.8 10 ^3/uL Basophils # (Auto) 0.1 0-0.2 10 ^3/uL Nucleated Red Blood Cells 0.1 % Sodium Level 138 136-145 mmol/L Potassium Level 3.5 3.5-5.1 mmol/L Chloride Level 106 98-107 mmol/L Carbon Dioxide Level 23 20-31 mmol/L Anion Gap 9 5-15 Blood Urea Nitrogen < 5 L 9-23 mg/dL Creatinine 0.60 0.550-1.02 mg/dL Glomerular Filtration Rate Calc 111 >90 mL/min BUN/Creatinine Ratio 8.3 L 10.0-20.0 Serum Glucose 99 74-106 mg/dL Calcium Level 8.3 L 8.7-10.4 mg/dL Total Bilirubin 0.3 0.2-1.0 mg/dL Aspartate Amino Transferase (AST) 21 13-40 U/L Alanine Aminotransferase (ALT) 14 7-40 U/L Alkaline Phosphatase 51 46-116 U/L Total Protein 6.8 5.7-8.2 g/dL Albumin 3.8 3.2-4.8 g/dL Current Medications Medications (Trade) Dose Ordered Sig/Finn Route Start Time Stop Time Status Last Admin Acetaminophen/ Hydrocodone Bitart (Pauline 5/325MG Tab) 2 tab ONCE ONCE PO 11/07/25 18:45 11/07/25 18:47 DC 11/07/25 18:57 Time of 1ST Reevaluation: 18:47 Reevaluation 1ST: Unchanged Patient Education/Counseling: Diagnosis, Treatment Family Education/Counseling: No Family Present SEPSIS Sepsis Screen Date sepsis recognized/suspect: Nov 07, 2025 Time Sepsis recognized/suspect: 1626 Recent Procedure: No On Antibiotic Therapy: No Respiratory Rate >20: No Heart Rate >90: No Temp<36 C (96.8 F) or >38.3 C: No SBP <90 or MAP <65 mmHG: No New Acute Mental Status Change: No Is the patient on CPAP, BIPAP,: No Physician Orders Electrocardigram (11/07/25 16:38) Chest Portable (11/07/25 18:23) Hydralazine Injection (Apresoline Inject (11/07/25 20:45) Heplock Iv (11/07/25 ) Head Without Contrast (11/07/25 20:35) Vital Signs Date Time Temp Pulse Resp B/P (MAP) Pulse Ox O2 Delivery O2 Flow Rate FiO2 11/07/25 20:12 98.1 95 19 169/97 (121) 99 98.1 11/07/25 20:12 95 19 99 Room Air 11/07/25 19:42 98.6 100 16 180/107 (131) 97 98.6 11/07/25 16:35 93 11/07/25 16:24 98.4 96 17 169/120 100 98.4 Laboratory Tests Test 11/07/25 16:45 White Blood Count 6.7 10^3/uL (4.4-10.8) Medications Medications Dose Ordered Sig/Finn Route Start Time Stop Time Status Last Admin Dose Admin Acetaminophen/ Hydrocodone Bitart 2 tab ONCE ONCE PO 11/07/25 18:45 11/07/25 18:47 DC 11/07/25 18:57 Departure 1 Departure Time of Disposition: 20:41 Impression: Primary Impression: Hypertensive emergency Additional Impression: Acute coronary syndrome Disposition: ADMITTED INPATIENT Admit to: [facility] Condition: Guarded Discharged With: Self Comments 49-year-old female with a history of hypertension now with chest pain and headache. Her blood pressure is elevated. On re-evaluation she states that she still feels a severe headache and dizziness in his concerned about her blood pressure. I ordered hydralazine and aspirin. Patient will need to be admitted for supportive care and further workup. Critical Care Note Critical Care Time?: Yes (35 min-critical care time only) Critical care comment: Total critical care time: Approximately 36 minutes Due to a high probability of clinically significant, life threatening deterioration, the patient required my highest level of preparedness to intervene emergently and I personally spent this critical care time directly and personally managing the patient. This critical care time included obtaining a history; examining the patient; pulse oximetry; ordering and review of studies; arranging urgent treatment with development of a management plan; evaluation of patient's response to treatment; frequent reassessment; and, discussions with other providers. This critical care time was performed to assess and manage the high probability of imminent, life-threatening deterioration that could result in multi-organ failure. It was exclusive of separately billable procedures and treating other patients. Stability Stability form required: No Heart Score Heart Score: Heart Score Response (Comments) Value History Slightly Suspicious 0 EKG Repolarization Disturb 1 Age 45-64 1 Risk Factors 1 or 2 risk factors 1 Troponin Normal limit 0 Total 3 I personally scribed for BRE DICKEY MD ([email or web address]) on 11/07/25 at 18:49. Electronically submitted by Jonathon Townsend ([email or web address]). BRE DICKEY MD Nov 07, 2025 18:49
--- NOTE | 2025-11-07 18:52 | DVH ---
EXAM: XY CHEST PORTABLE CLINICAL HISTORY: chest pain TECHNIQUE: Single AP view of the chest WID: COMPARISON: XY CHEST PORTABLE on DOS: 05/10/25 FINDINGS: Lines and tubes: None. Cholecystectomy clips are seen. Chest: The heart size and pulmonary vasculature is within normal limits. No pleural effusion, pneumothorax, or consolidation. The osseous structures are grossly intact. Multilevel thoracic spondylosis. IMPRESSION: 1. No acute cardiopulmonary abnormality.
[2025-11-07] MEDS: HYDROcodone-ACET 5/325MG TAB PO ONE (18:57)
[2025-11-07] MEDS: HYDROcodone-ACET 5/325MG TAB ONE (18:58)
[2025-11-07 19:28] LABS: Alanine Aminotransferase 14 U/L (7-40); Albumin 3.8 g/dL (3.2-4.8); Alkaline Phosphatase 51 U/L (46-116); Anion Gap 9 (5-15); Bilirubin, Total 0.3 mg/dL (0.2-1.0); Carbon Dioxide 23 mmol/L (20-31); Chloride 106 mmol/L (98-107); Glucose 99 mg/dL (74-106); Potassium 3.5 mmol/L (3.5-5.1); Sodium 138 mmol/L (136-145); Total Protein 6.8 g/dL (5.7-8.2)
[2025-11-07 19:29] LABS: BUN/Creatinine Ratio 8.3 (10.0-20.0); Blood Urea Nitrogen < 5 mg/dL (9-23); Calcium 8.3 mg/dL (8.7-10.4)
[2025-11-07] MEDS ORDERED: DOCUSATE SOD 100 MG CAP PO PRN (20:45)
[2025-11-07] MEDS: hydrALAZINE HCL 20 MG/ML VL IV ONE (20:45)
[2025-11-07] MEDS ORDERED: ACETAMINOPHEN 325 MG TAB PO PRN (20:45)
--- NOTE | 2025-11-07 21:14 | DVHHP2 ---
History of Present Illness Reason for Visit: Hypertensive urgency History of Present Illness The patient is a 49-year-old female with past medical history of hypertension who presented to [facility] ED with complaint of chest pain. Patient reports that she has been experiencing midsternal chest pain for the past 1 w solomon, intermittent, nonradiating, associated with headache, throat pain and swelling, getting worse today that prompted this visit. Patient was seen and evaluated in the ED, laboratory data shows WBC 6.7, hemoglobin 10.7, hematocrit 33.7, platelets 342, sodium 138, potassium 3.5, BUN 5, creatinine 0.60, GFR 111, glucose 99, calcium 8.3, troponin 7, blood pressure 180/107 trending down to 118/73, heart rate 95, temperature 98.1 F, O2 saturation 99% on room air. Head CT showed no evidence of acute intracranial abnormality. Please see medication orders section in the computer. On my assessment, patient denied chest pain at this moment, no headache, dizziness, diaphoresis, shortness of breaths, no diarrhea, nausea, vomiting, fever, no chills. Patient was admitted for further evaluation and medical management. Past Medical History HTN Past Surgical History Cholecystectomy, , Hernia Repair Family History Reviewed, noncontributory to the management of this case. Past Social History The patient lives at home, denies smoking, alcohol or illicit drugs abuse. Review of Systems Constitutional: Yes: Weakness; No: Fever, Chills, Sweats, Malaise, Other Eyes: No: Pain, Vision change, Conjunctivae inflammation, Eyelid inflammation, Other, Redness ENT: Throat pain, Throat swelling; No: Ear pain, Ear discharge, Nose pain, Nose discharge, Nose congestion, Mouth pain, Mouth swelling, Other Respiratory: No: Cough, Dry, Shortness of breath, SOB with excertion, Wheezing, Hemoptysis, Pleuritic Pain, Sputum, Wheezing, Other Cardiovascular: Chest Pain; No: Palpitations, Orthopnea, Paroxysmal Noc. Dyspnea, Edema, Lt Headedness, Other Gastrointestinal: No: Nausea, Vomiting, Abdominal Pain, Diarrhea, Constipation, Melena, Hematochezia, Other Genitourinary: No Dysuria, No Frequency, No Incontinence, No Hematuria, No Retention, No Other Musculoskeletal: No: other, neck pain, shoulder pain, arm pain, back pain, hand pain, leg pain, foot pain Skin: No: Rash, Lesions, Jaundice, Bruising, Other Neurological: No: Weakness, Numbness, Incoordination, Change in speech, Confusion, Seizures, Other Allergies: Coded Allergies: Pork (Porcine) Protein (Verified Allergy, Unknown, 11/07/25) Spiritism not true allergy Pork-derived Products (Verified Allergy, Unknown, 11/07/25) Spiritism not true allergy Medications Current Medications Medications Dose Ordered Sig/Finn Route Start Time Stop Time Status Last Admin Dose Admin Clonidine HCl 0.2 mg Q6HP PRN PO 11/07/25 20:45 Amlodipine Besylate 10 mg DAILY PO 11/08/25 10:00 Metoprolol Tartrate 25 mg BID PO 11/07/25 22:00 Sodium Chloride 1,000 ml @ 60 mls/hr [id number] IV 11/07/25 20:45 Acetaminophen/ Hydrocodone Bitart 1 tab Q4HP PRN PO 11/07/25 20:45 Ondansetron HCl 4 mg Q4HP PRN IV 11/07/25 20:45 Docusate Sodium 100 mg BIDPRN PRN PO 11/07/25 20:45 Acetaminophen 650 mg Q6HP PRN PO 11/07/25 20:45 Exam Vital Signs Vital Signs Date Time Temp Pulse Resp B/P (MAP) Pulse Ox O2 Delivery O2 Flow Rate FiO2 11/07/25 20:12 98.1 95 19 169/97 (121) 99 98.1 11/07/25 20:12 Room Air General Appearance: Alert, Oriented X3, Cooperative, No acute distress HEENT: Atraumatic, PERRLA, EOMI, Mucous membr. moist/pink Respiratory: Clear to auscultation, Normal air movement Cardiovascular: Regular rate, Normal S1, Normal S2, No murmurs Abdominal: Normal bowel sounds, Soft, No tenderness, No hepatospenomegaly, No masses Extremities: No clubbing, No cyanosis, No edema, Normal pulses, No tenderness /swelling Skin: No rashes, No significant lesion Neuro: Normal speech, Normal tone, Sensation intact, Cranial nerves 3-12 NL, Reflexes 2+, Other (Generalized weakness) Psych/Mental Status: Mental status NL, Mood NL Labs/Xrays Labs Test 11/07/25 18:50 11/07/25 16:45 Range/Units Troponin I High Sensitivity 6 </=34 ng/L White Blood Count 6.7 4.4-10.8 10^3/uL Red Blood Count 3.92 L 4.0-5.20 10^6/uL Hemoglobin 10.7 L 12.2-16.2 g/dL Hematocrit 33.7 L 36.0-46.0 % Mean Corpuscular Volume 86.1 80.0-100.0 fL Mean Corpuscular Hemoglobin 27.2 L 28.0-32.0 pg Mean Corpuscular Hemoglobin Concent 31.6 L 32.0-36.0 g/dL Red Cell Distribution Width 16.2 H 11.8-14.3 % Platelet Count 342 140-450 10^3/uL Mean Platelet Volume 7.5 6.9-10.8 fL Neutrophils (%) (Auto) 62.6 37.0-80.0 % Lymphocytes (%) (Auto) 22.8 10.0-50.0 % Monocytes (%) (Auto) 12.0 0.0-12.0 % Eosinophils (%) (Auto) 1.8 0.0-7.0 % Basophils (%) (Auto) 0.8 0.0-2.0 % Neutrophils # (Auto) 4.2 1.6-8.6 10 ^3/uL Lymphocytes # (Auto) 1.5 0.4-5.4 10 ^3/uL Monocytes # (Auto) 0.8 0-1.3 10 ^3/uL Eosinophils # (Auto) 0.1 0-0.8 10 ^3/uL Basophils # (Auto) 0.1 0-0.2 10 ^3/uL Nucleated Red Blood Cells 0.1 % Sodium Level 138 136-145 mmol/L Potassium Level 3.5 3.5-5.1 mmol/L Chloride Level 106 98-107 mmol/L Carbon Dioxide Level 23 20-31 mmol/L Anion Gap 9 5-15 Blood Urea Nitrogen < 5 L 9-23 mg/dL Creatinine 0.60 0.550-1.02 mg/dL Glomerular Filtration Rate Calc 111 >90 mL/min BUN/Creatinine Ratio 8.3 L 10.0-20.0 Serum Glucose 99 74-106 mg/dL Calcium Level 8.3 L 8.7-10.4 mg/dL Total Bilirubin 0.3 0.2-1.0 mg/dL Aspartate Amino Transferase (AST) 21 13-40 U/L Alanine Aminotransferase (ALT) 14 7-40 U/L Alkaline Phosphatase 51 46-116 U/L Total Protein 6.8 5.7-8.2 g/dL Albumin 3.8 3.2-4.8 g/dL PATIENT: KATY MIKEAYNEACCT: [id number] UNIT: [id number] : 1975 LOC: ER ROOM / BED: / AGE / SEX: 49 / F ADM STATUS: REG ER SERVICE 34 ORDERING PHYSICIAN: BRE DICKEY MD PROCEDURE(s): HWOCT - HEAD WITHOUT CONTRAST REASON: headache ORDER NUMBER(s): [id number], ACCESSION NUMBER(s): [id number] PROCEDURE: CT HEAD WITHOUT CONTRAST Study Date and Requested Time: 11/07/2025 08:43 PM History: headache COMPARISON: CT HEAD WITHOUT CONTRAST on DOS: 09/30/24 Dose: CTDI: 60.47 mGy DLP: 1070.54 mGycm TECHNIQUE: Multiplanar images obtained through the brain without intravenous contrast. FINDINGS: Normal brain volume and formation. No hemorrhages, masses, mass effect, midline shift, herniation or cytotoxic edema following a large vascular territory. No intra-axial or extra-axial fluid collections. No evidence of hydrocephalus. The basal cisterns are patent. Nonspecific Partially Empty sella. The cerebellar tonsils are in normal position. The cerebellum is unremarkable. The orbits and globes are unremarkable. Mucous retention cysts within the right maxillary sinus. The remainder of the paranasal sinuses and mastoids are clear. There are no worrisome calvarial lesions. IMPRESSION: No evidence of acute intracranial abnormality. ORDERING PHYSICIAN: BRE DICKEY MD PROCEDURE(s): CXRP - CHEST PORTABLE REASON: chest pain ORDER NUMBER(s): [id number], ACCESSION NUMBER(s): [id number] EXAM: XY CHEST PORTABLE CLINICAL HISTORY: chest pain TECHNIQUE: Single AP view of the chest WID: COMPARISON: XY CHEST PORTABLE on DOS: 05/10/25 FINDINGS: Lines and tubes: None. Cholecystectomy clips are seen. Chest: The heart size and pulmonary vasculature is within normal limits. No pleural effusion, pneumothorax, or consolidation. The osseous structures are grossly intact. Multilevel thoracic spondylosis. IMPRESSION: 1. No acute cardiopulmonary abnormality. SEPSIS Sepsis Screen Date sepsis recognized/suspect: Nov 07, 2025 Time Sepsis recognized/suspect: 1626 Recent Procedure: No On Antibiotic Therapy: No Respiratory Rate >20: No Heart Rate >90: No Temp<36 C (96.8 F) or >38.3 C: No SBP <90 or MAP <65 mmHG: No New Acute Mental Status Change: No Is the patient on CPAP, BIPAP,: No Physician Orders Electrocardigram (11/07/25 16:38) Chest Portable (11/07/25 18:23) Heplock Iv (11/07/25 ) Head Without Contrast (11/07/25 20:35) Clonidine Hcl Tablet (Catapres Tablet) (11/07/25 20:45) Amlodipine Tablet (Norvasc Tablet) (11/08/25 10:00) Metoprolol Tartrate Tablet (Lopressor Ta (11/07/25 22:00) Allergies (11/07/25 20:38) Code Status (11/07/25 20:38) Sodium Chloride 0.9% (11/07/25 20:45) Oxygen Per Hour (11/07/25 20:38) Hydrocodone-Acet 5/325mg Tab ([place] 5/32 (11/07/25 20:45) Ondansetron Hcl (Zofran) (11/07/25 20:45) Docusate Sodium Capsule (Colace Capsule) (11/07/25 20:45) Complete Blood Count (11/08/25 04:00) Comprehensive Metabolic Panel (11/08/25 04:00) Cardiac Diet-2gna,Lofat,Lochol (11/08/25 Breakfast) Condition: Serious (11/07/25 20:38) Acetaminophen Tablet (Tylenol Tablet) (11/07/25 20:45) Bedrest With Bathroom Privileg (11/07/25 20:38) Sequential Compression Device (11/07/25 ) Vital Signs Date Time Temp Pulse Resp B/P (MAP) Pulse Ox O2 Delivery O2 Flow Rate FiO2 11/07/25 20:12 98.1 95 19 169/97 (121) 99 98.1 11/07/25 20:12 95 19 99 Room Air 11/07/25 19:42 98.6 100 16 180/107 (131) 97 98.6 11/07/25 16:35 93 11/07/25 16:24 98.4 96 17 169/120 100 98.4 Laboratory Tests Test 11/07/25 16:45 White Blood Count 6.7 10^3/uL (4.4-10.8) Medications Medications Dose Ordered Sig/Finn Route Start Time Stop Time Status Last Admin Dose Admin Acetaminophen/ Hydrocodone Bitart 2 tab ONCE ONCE PO 11/07/25 18:45 11/07/25 18:47 DC 11/07/25 18:57 2 TAB Assessment/Plan Assessment/Plan Hypertensive urgency Acute coronary syndrome Generalized weakness Plan 1. Admit to telemetry unit 2. Breathing treatment 3. Pain control management 4. Management of fluids and electrolytes 5. Consultation for hospitalist 6. Diagnostic tests chest x-ray 7. DVT prophylaxis-on aspirin 8. Repeat labs CBC, CMP in a.m. 9. Continue with current medical management 10. Treatment plan discussed with patient and RN. Patient verbalized underst anding. Plan discussed with: Patient, Other (RN) My Orders Orders - MOUSTAPHA PAINTER DNP Procedure Category Date Status Time Clonidine Hcl Tablet PHA 11/07/25 In Process (Catapres Tablet) 20:45 Amlodipine Tablet PHA 11/08/25 In Process (Norvasc Tablet) 10:00 Metoprolol Tartrate PHA 11/07/25 In Process Tablet (Lopressor Ta 22:00 Allergies BRISSA 11/07/25 In Process 20:38 Code Status CODE 11/07/25 Transmitted 20:38 Sodium Chloride 0.9% PHA 11/07/25 In Process 20:45 Oxygen Per Hour RT 11/07/25 Transmitted 20:38 Hydrocodone-Acet PHA 11/07/25 In Process 5/325mg Tab ([place] 20:45 Ondansetron Hcl PHA 11/07/25 In Process (Zofran) 20:45 Docusate Sodium PHA 11/07/25 In Process Capsule (Colace 20:45 Complete Blood Count LAB 11/08/25 Verified 04:00 Comprehensive LAB 11/08/25 Verified Metabolic Panel 04:00 Cardiac DIET 11/08/25 Transmitted Diet-2gna,Lofat,Lochol Breakfast Condition: Serious BRISSA 11/07/25 In Process 20:38 Acetaminophen Tablet PHA 11/07/25 In Process (Tylenol Tablet) 20:45 Bedrest With Bathroom BRISSA 11/07/25 In Process Privileg 20:38 Sequential BRISSA 11/07/25 In Process Compression Device Problem List: (1) Hypertensive urgency (2) Acute coronary syndrome (3) Generalized weakness Date of Service: Nov 07, 2025 Billing Provider: MOUSTAPHA PAINTER DNP Common Visit Codes: [id number] INP/OBS CARE (HIGH) MOUSTAPHA PAINTER DNP Nov 07, 2025 21:14
[2025-11-07] MEDS ORDERED: NITROGLYCERIN 0.4 MG SL TAB SL PRN (21:15)
[2025-11-07] MEDS ORDERED: MORPHINE SULFATE INJ 2 MG/ml SYRG IV PRN (21:15)
[2025-11-07] MEDS: hydrALAZINE HCL 20 MG/ML VL ONE (22:24)
[2025-11-07 22:43] VITALS: BP 101/56; PULSE 79; RESP 18; TEMP 98; O2SAT 97
[2025-11-07] MEDS: METOPROLOL TARTRATE 25 MG TAB PO SCH (22:48)
[2025-11-07 23:17] VITALS: BP 101/56; PULSE 79; RESP 18; TEMP 98; O2SAT 97
[2025-11-08] VITALS (8 sets, daily range): BP systolic 109–150; BP diastolic 66–91; PULSE 88–125; RESP 16–20; TEMP 97.4–98.6; O2SAT 95–100
[2025-11-08] MEDS: SODIUM CHLORIDE 0.9% 1,000 ML IV SCH (06:09)
[2025-11-08 07:15] LABS: Hemoglobin 10.5 g/dL (12.2-16.2); Mean Corpuscular Volume 85.6 fL (80.0-100.0)
[2025-11-08 07:18] LABS: Hematocrit 33.2 % (36.0-46.0); Mean Corpuscular Hemoglobin 27.1 pg (28.0-32.0); Nucleated Red Blood Cells % 0.2 %
[2025-11-08 07:39] LABS: Alanine Aminotransferase 14 U/L (7-40); Alkaline Phosphatase 55 U/L (46-116); Calcium 8.8 mg/dL (8.7-10.4); Carbon Dioxide 21 mmol/L (20-31); Chloride 102 mmol/L (98-107); Sodium 136 mmol/L (136-145)
[2025-11-08 07:40] LABS: Albumin 4.1 g/dL (3.2-4.8); Anion Gap 13 (5-15); Bilirubin, Total 0.4 mg/dL (0.2-1.0); Total Protein 7.4 g/dL (5.7-8.2)
[2025-11-08 07:41] LABS: BUN/Creatinine Ratio 8.2 (10.0-20.0); Blood Urea Nitrogen < 5 mg/dL (9-23); Glucose 108 mg/dL (74-106); Potassium 3.5 mmol/L (3.5-5.1)
[2025-11-08] MEDS: HYDROcodone-ACET 5/325MG TAB PO PRN (09:13)
[2025-11-08] MEDS: IBUPROFEN 600 MG TAB PO PRN (15:52)
[2025-11-08 16:26] LABS: COVID19 ANTIGEN SOFIA FIA NEGATIVE (NEGATIVE)
[2025-11-08 16:27] LABS: Rapid Strep A Screen-Throat Negative
[2025-11-08] MEDS: OSELTAMIVIR 75 MG CAP PO ONE (17:36)
[2025-11-08] MEDS: KETOROLAC TROMETH 30 MG/ML 1ML VIAL IV PRN (18:18)
--- NOTE | 2025-11-08 18:38 | DVHPN2 ---
Subjective Blood pressure has improved. Patient has not been taking her BP medications more than six months. Patient's complaints of sore throat and discomfort Changes from previous H/P or p: No Changes Eyes: No Pain, No Vision change, No Conjunctivae inflammation, No Eyelid inflammation, No Other, No Redness ENT: No Ear pain, No Ear discharge, No Nose pain, No Nose discharge, No Nose congestion, No Mouth pain, No Mouth swelling; Throat pain, Throat swelling; No Other Cardiovascular: Chest Pain; No Palpitations, No Orthopnea, No Paroxysmal Noc. Dyspnea, No Edema, No Lt Headedness, No Other Respiratory: No Cough, No Dry, No Shortness of breath, No SOB with excertion, No Wheezing, No Hemoptysis, No Pleuritic Pain, No Sputum, No Other Gastrointestinal: No Nausea, No Vomiting, No Abdominal Pain, No Diarrhea, No Constipation, No Melena, No Hematochezia, No Other Genitourinary: No Dysuria, No Frequency, No Incontinence, No Hematuria, No Retention, No Other Musculoskeletal: No other, No neck pain, No shoulder pain, No arm pain, No back pain, No hand pain, No leg pain, No foot pain Skin: No Rash, No Lesions, No Jaundice, No Bruising, No Other Objective Vitals Vital Signs Date Time Temp Pulse Resp B/P (MAP) Pulse Ox O2 Delivery O2 Flow Rate FiO2 11/08/25 17:06 98.6 102 16 150/91 (110) 100 98.6 11/08/25 08:00 Room Air* 0 21 Exam Family at bedside. Alert awake oriented x3. HEENT neck supple no JVD pupils equal round react to light. Heart regular rate rhythm S1-S2. Lungs fair air movement without rales wheezes. Abdomen soft nontender positive bowel sounds. Extremities no edema positive pulses. Medications Current Medications Medications Dose Ordered Sig/Finn Route Start Time Stop Time Status Last Admin Dose Admin Clonidine HCl 0.2 mg Q6HP PRN PO 11/07/25 20:45 Amlodipine Besylate 10 mg DAILY PO 11/08/25 10:00 11/08/25 09:14 10 MG Metoprolol Tartrate 25 mg BID PO 11/07/25 22:00 11/08/25 09:14 25 MG Sodium Chloride 1,000 ml @ 60 mls/hr [id number] IV 11/07/25 20:45 11/08/25 13:25 60 MLS/HR Acetaminophen/ Hydrocodone Bitart 1 tab Q4HP PRN PO 11/07/25 20:45 11/08/25 09:13 1 TAB Ondansetron HCl 4 mg Q4HP PRN IV 11/07/25 20:45 Docusate Sodium 100 mg BIDPRN PRN PO 11/07/25 20:45 Nitroglycerin 0.4 mg Q5MINP PRN SL 11/07/25 21:15 Morphine Sulfate 2 mg Q30M PRN IV 11/07/25 21:15 Ibuprofen 600 mg Q6HP PRN PO 11/08/25 15:30 11/08/25 15:52 600 MG Chlordiazepoxide HCl 25 mg Q6HPRN PRN PO 11/08/25 15:30 Oseltamivir Phosphate 75 mg BID PO 11/09/25 10:00 11/13/25 10:01 Ketorolac Tromethamine 30 mg Q6HPRN PRN IV 11/08/25 17:45 11/13/25 17:44 11/08/25 18:18 30 MG Famotidine 20 mg Q12HR PO 11/08/25 22:00 Laboratory Results Laboratory Tests 11/08/25 05:52 Chemistry Test 11/08/25 05:52 Albumin 4.1 g/dL (3.2-4.8) Calcium Level 8.8 mg/dL (8.7-10.4) Total Protein 7.4 g/dL (5.7-8.2) Coagulation Test 11/08/25 18:05 D-Dimer, Quantitative Pending LFT Test 11/08/25 05:52 Alanine Aminotransferase (ALT) 14 U/L (7-40) Alkaline Phosphatase 55 U/L (46-116) Aspartate Amino Transferase (AST) 25 U/L (13-40) Total Bilirubin 0.4 mg/dL (0.2-1.0) Labs and/or images reviewed: Labs reviewed by me Assessment/Plan Assessment/Plan I will send a rapid strep and influenza as well as COVID test given her complaints. Continue current blood pressure medications. Patient underwent counseling regarding compliance with the her BP medications risks of strokes and OK. Otherwise continue rest of supportive care and treatment ambulate as tolerated. Further clinical management per clinical course and pending evaluations and studies. Discussed with the patient's/nurse at bedside regarding care plan. Plan discussed with: Patient, Other My Orders Orders - RICHIE HUGHES MD Procedure Category Date Status Time Ibuprofen Tablet PHA 11/08/25 In Process (Motrin Tablet) 15:30 D-Dimer LAB 11/08/25 In Process 15:26 Etoh Withdrawal BRISSA 11/08/25 In Process Assessment 15:26 Chlordiazepoxide Hcl PHA 11/08/25 In Process Capsule (Librium Ca 15:30 *Consult CONS 11/08/25 Transmitted 16:43 Isolation Order ORDERS 11/08/25 Transmitted 16:43 Oseltamivir 75mg PHA 11/09/25 In Process Capsule (Tamiflu 75mg 10:00 * Channel Lip Wetter CONS 11/08/25 Transmitted Consult Ketorolac Injection PHA 11/08/25 In Process (Toradol Injection) 17:45 Famotidine Tablet PHA 11/08/25 In Process (Pepcid Tablet) 22:00 Problem List: (1) Hypertensive urgency (2) Generalized weakness (3) Chest pain (4) Cough (5) Viral syndrome Date of Service: Nov 08, 2025 Billing Provider: RICHIE HUGHES MD Common Visit Codes: [id number] INP/OBS CARE(HIGH) RICHIE HUGHES MD Nov 08, 2025 18:38
[2025-11-08] MEDS: METOPROLOL TARTRATE 25 MG TAB PO SCH (21:12)
[2025-11-08] MEDS: FAMOTIDINE 20 MG TAB PO SCH (21:12)
--- NOTE | 2025-11-08 22:42 | DVHINCON2 ---
Date of service: Nov 08, 2025 Referring Physician ELIDA Tipton Reason for Consultation Positive influenza B. History of Present Illness The patient is a 49-year-old female with past medical history of hypertension who presented to ED on 11/07/25 with complaint of chest pain. Patient reports that she has been experiencing midsternal chest pain for the past 1 week, intermittent, nonradiating, associated with headache, throat pain and swelling, getting worse today that prompted this visit. Patient was seen and evaluated in the ED, laboratory data shows WBC 6.7, hemoglobin 10.7, hematocrit 33.7, platelets 342, sodium 138, potassium 3.5, BUN 5, creatinine 0.60, GFR 111, glucose 99, calcium 8.3, troponin 7, blood pressure 180/107 trending down to 118/73, heart rate 95, temperature 98.1 F, O2 saturation 99% on room air. Head CT showed no evidence of acute intracranial abnormality. Please see medication orders section in the computer. On my assessment, patient denied chest pain at this moment, no headache, dizziness, diaphoresis, shortness of breath. No diarr hea, nausea, vomiting, fever, no chills. Patient was admitted for further evaluation and medical management. Patient was admitted for further care. Pulmonary consultation is requested for evaluation and management due to positive influenza B. Review of Systems: 14-point review of systems negative unless otherwise noted above. Past Medical History: Hypertension Past Surgical History: Cholecystectomy, , Hernia Repair Medications: Reviewed. Allergies: Pork (Cheondoism). Family History: DM, HTN, breast cancer Social History: Nonsmoker. No alcohol or illicit drug use. Family History: Diabetes mellitus G8 MOTHER FH: breast cancer G8 MOTHER aunt Hypertension G8 MOTHER G8 FATHER Allergies: Coded Allergies: Pork (Porcine) Protein (Verified Allergy, Unknown, 11/07/25) Cheondoism not true allergy Pork-derived Products (Verified Allergy, Unknown, 11/07/25) Cheondoism not true allergy Home Meds No Active Prescriptions or Reported Meds Current Medications Current Medications Medications (Trade) Dose Ordered Sig/Finn Route PRN Reason Start Time Stop Time Status Last Admin Amlodipine Besylate (Norvasc Tablet) 10 mg DAILY PO 11/08/25 10:00 11/08/25 09:14 Ibuprofen (Motrin Tablet) 600 mg Q6HP PRN PO MILD PAIN (1-3 PAIN SCALE) 11/08/25 15:30 11/08/25 15:52 Chlordiazepoxide HCl (Librium Capsule) 25 mg Q6HPRN PRN PO ALCOHOL WITHDRAWAL SYMPTOMS 11/08/25 15:30 Oseltamivir Phosphate (Tamiflu 75MG Capsule) 75 mg BID PO 11/09/25 10:00 11/13/25 10:01 Ketorolac Tromethamine (Toradol Injection) 30 mg Q6HPRN PRN IV SEVERE PAIN (7-10 PAIN SCALE) 11/08/25 17:45 11/13/25 17:44 11/08/25 18:18 Famotidine (Pepcid Tablet) 20 mg Q12HR PO 11/08/25 22:00 11/08/25 21:12 Metoprolol Tartrate (Lopressor Tablet) 25 mg BID PO 11/08/25 22:00 11/08/25 21:12 Vital Signs Vital Signs Date Time Temp Pulse Resp B/P (MAP) Pulse Ox O2 Delivery O2 Flow Rate FiO2 11/08/25 22:12 90 11/08/25 21:12 130/75 11/08/25 21:00 98.2 18 97 98.2 11/08/25 20:00 Room Air* 0 21 Physical Exam Gen.: Patient lying in bed in no apparent distress. Breathing on room air. Head: Normocephalic, atraumatic. Eyes: EOMI/PERRLA. Ears: Normal hearing. Normal anatomy. Neck/trachea: Trachea midline, supple. Nose: Normal external anatomy. Mouth: Moist mucous membranes. Chest: Decreased air entry bilaterally. No wheezing or rhonchi. Cardiovascular: Positive S1, positive S2. Regular rate and rhythm. Abdomen: Positive bowel sounds in all 4 quadrants. Soft, non-tender, non- distended. : Deferred. Rectal: Deferred. Skin: Warm, dry. Intact. Extremities: 2+ radial pulses bilaterally. No lower extremity edema. Neuro: Awake, alert, oriented x3. No gross motor or sensory deficits. Cranial ne rves II through XII intact. Gait not assessed. Labs/Diagnostic Data Labs Test 11/08/25 18:05 11/08/25 14:28 11/08/25 05:52 11/07/25 18:50 Range/Units D-Dimer, Quantitative 0.54 H 0.0-0.49 mg/L FEU Influenza Type A Antigen Negative Negative Influenza Type B Antigen Positive Negative SARS-CoV-2 Antigen (Rapid) Negative NEGATIVE Group A Streptococcus Rapid Negative White Blood Count 6.4 4.4-10.8 10^3/uL Red Blood Count 3.88 L 4.0-5.20 10^6/uL Hemoglobin 10.5 L 12.2-16.2 g/dL Hematocrit 33.2 L 36.0-46.0 % Mean Corpuscular Volume 85.6 80.0-100.0 fL Mean Corpuscular Hemoglobin 27.1 L 28.0-32.0 pg Mean Corpuscular Hemoglobin Concent 31.6 L 32.0-36.0 g/dL Red Cell Distribution Width 16.4 H 11.8-14.3 % Platelet Count 352 140-450 10^3/uL Mean Platelet Volume 7.7 6.9-10.8 fL Neutrophils (%) (Auto) 80.0 37.0-80.0 % Lymphocytes (%) (Auto) 10.8 10.0-50.0 % Monocytes (%) (Auto) 8.4 0.0-12.0 % Eosinophils (%) (Auto) 0.1 0.0-7.0 % Basophils (%) (Auto) 0.7 0.0-2.0 % Neutrophils # (Auto) 5.1 1.6-8.6 10 ^3/uL Lymphocytes # (Auto) 0.7 0.4-5.4 10 ^3/uL Monocytes # (Auto) 0.5 0-1.3 10 ^3/uL Eosinophils # (Auto) 0 0-0.8 10 ^3/uL Basophils # (Auto) 0 0-0.2 10 ^3/uL Nucleated Red Blood Cells 0.2 % Sodium Level 136 136-145 mmol/L Potassium Level 3.5 3.5-5.1 mmol/L Chloride Level 102 98-107 mmol/L Carbon Dioxide Level 21 20-31 mmol/L Anion Gap 13 5-15 Blood Urea Nitrogen < 5 L 9-23 mg/dL Creatinine 0.61 0.550-1.02 mg/dL Glomerular Filtration Rate Calc 111 >90 mL/min BUN/Creatinine Ratio 8.2 L 10.0-20.0 Serum Glucose 108 H 74-106 mg/dL Calcium Level 8.8 8.7-10.4 mg/dL Total Bilirubin 0.4 0.2-1.0 mg/dL Aspartate Amino Transferase (AST) 25 13-40 U/L Alanine Aminotransferase (ALT) 14 7-40 U/L Alkaline Phosphatase 55 46-116 U/L Total Protein 7.4 5.7-8.2 g/dL Albumin 4.1 3.2-4.8 g/dL Troponin I High Sensitivity 6 </=34 ng/L Assessment Impression: Influenza B Hypertensive urgency Acute coronary syndrome Elevated D-dimer; rule out PE Generalized weakness Obesity Plan: Supplemental oxygen PRN Titrate to keep O2 sats above 92%. Chest x-ray shows no acute opacities. Patient c/o chest pain Elevated D-dimer - Recommend CTA to rule out pulmonary embolism. Follow up Cardiology recs Tamiflu course for influenza Blood pressure control Pepcid BID for GI prophylaxis. Pain control Avoid oversedation Monitor renal function. Monitor electrolytes. Supplement as necessary. Monitor ins and outs. Monitor hemoglobin - 10.5 g/dL Transfuse if less than 7.0 g/dL. Recommend diet and lifestyle modifications for weight reduction Obesity complicates all care GI/DVT prophylaxis. Prognosis: Poor given patient's multiple co-morbidities. Rest of plan per hospitalist and other consultants. Thank you, ELIDA Tipton, for allowing me to participate in this patient's care. Further recommendations will depend on the patient's clinical course. Please do not hesitate to contact me if you have any questions or concerns. This medical document was created using an electronic medical record system with [employer] computerized dictation system. Although these documentations are being carefully reviewed, there may still be some phonetic and typographical changes. The errors are purely typographical, due to imperfection on the software program, and do not reflect any compromise in the patient's medical care. Plan discussed with: Patient, Other (RN Viji) Visit Coding Pulmonary Billing Provider: EDITH CASTAÑEDA MD Date of Service if different f: Nov 08, 2025 Common Visit Codes: [id number] INP/OBS CARE (HIGH) EDITH CASTAÑEDA MD Nov 08, 2025 22:42
[2025-11-09] VITALS (7 sets, daily range): BP systolic 116–153; BP diastolic 77–96; PULSE 74–121; RESP 18; TEMP 97.8–99; O2SAT 96–100
[2025-11-09 07:11] LABS: Hematocrit 34.8 % (36.0-46.0); Hemoglobin 10.5 g/dL (12.2-16.2); Mean Corpuscular Hemoglobin 27.3 pg (28.0-32.0); Mean Corpuscular Volume 90.8 fL (80.0-100.0); Nucleated Red Blood Cells % 0.1 %
[2025-11-09 07:25] LABS: Potassium 4.0 mmol/L (3.5-5.1)
[2025-11-09 07:26] LABS: Anion Gap 5 (5-15)
[2025-11-09 07:32] LABS: Glucose 91 mg/dL (74-106)
[2025-11-09 07:39] LABS: BUN/Creatinine Ratio 7.6 (10.0-20.0); Blood Urea Nitrogen < 5 mg/dL (9-23); Calcium 8.3 mg/dL (8.7-10.4); Carbon Dioxide 19 mmol/L (20-31); Chloride 111 mmol/L (98-107); Sodium 135 mmol/L (136-145)
[2025-11-09] MEDS: OSELTAMIVIR 75 MG CAP PO SCH (08:05)
[2025-11-09] MEDS: IOHEXOL 350 MG/ML 100ML IJ ONE (10:36)
--- NOTE | 2025-11-09 12:01 | DVH ---
EXAM: CT CT ANGIO CHEST CONTRAST Reason for study/ Clinical History: elevated d-dimer r/o PE, right sided chest pain COMPARISON STUDY: XY CHEST PORTABLE on DOS: 11/07/25, XY CHEST PORTABLE on DOS: 05/10/25 Exam Date: 11/09/2025 10:36 AM Radiation Dose Information: CT Dose: CTDI volume is 23.86 mGy. Dose-length product is 840.49 mGy*cm TECHNIQUE: Multidetector CTA of the chest was performed of the chest with intravenous contrast. PULMONARY ANGIOGRAPHY PROTOCOL was utilized using a bolus- tracking technique centered on the main pulmonary artery. Axial, coronal and sagittal multiplanar and MIP reformats were performed. FINDINGS: Lower neck: Unremarkable. Lungs and Pleura: No consolidation or suspicious pulmonary nodules. No pleural effusions. Lymph nodes: No mediastinal, hilar, or axillary lymphadenopathy. Cardiovascular and Mediastinum: No significant pericardial effusion. Mild coronary calcifications. Pulmonary arteries: Limited evaluation for segmental and subsegmental pulmonary arteries due to suboptimal opacification and motion degradation. Given this limitation, no central emboli. Osseous and soft tissues: No suspicious osseous lesions. Upper abdomen: No acute abnormality in the visualized upper abdomen. Postsurgical changes in the stomach. IMPRESSION: Limited evaluation for segmental and subsegmental pulmonary arteries due to suboptimal opacification and motion degradation. Given this limitation, no central emboli.
--- NOTE | 2025-11-09 16:58 | DVHPN2 ---
Subjective Patient's came out influenza B positive complaining of sore throat. Patient also noncompliant with the hypertensive medication has not been taking hypertensive meds for last six months. Changes from previous H/P or p: No Changes Eyes: No Pain, No Vision change, No Conjunctivae inflammation, No Eyelid inflammation, No Other, No Redness ENT: No Ear pain, No Ear discharge, No Nose pain, No Nose discharge, No Nose congestion, No Mouth pain, No Mouth swelling; Throat pain, Throat swelling; No Other Cardiovascular: Chest Pain; No Palpitations, No Orthopnea, No Paroxysmal Noc. Dyspnea, No Edema, No Lt Headedness, No Other Respiratory: No Cough, No Dry, No Shortness of breath, No SOB with excertion, No Wheezing, No Hemoptysis, No Pleuritic Pain, No Sputum, No Other Gastrointestinal: No Nausea, No Vomiting, No Abdominal Pain, No Diarrhea, No Constipation, No Melena, No Hematochezia, No Other Genitourinary: No Dysuria, No Frequency, No Incontinence, No Hematuria, No Retention, No Other Musculoskeletal: No other, No neck pain, No shoulder pain, No arm pain, No back pain, No hand pain, No leg pain, No foot pain Skin: No Rash, No Lesions, No Jaundice, No Bruising, No Other Objective Vitals Vital Signs Date Time Temp Pulse Resp B/P (MAP) Pulse Ox O2 Delivery O2 Flow Rate FiO2 11/09/25 13:00 98.8 95 18 146/95 (112) 98 98.8 11/09/25 08:00 Room Air* 0 21 Intake/Output Intake and Output 11/09/25 07:00 Intake Total 1875 ml Balance 1875 ml Intake Oral 1575 ml IV Total 300 ml # Voids 7 # Bowel Movements 3 Exam HEENT pupils are reactive Neck is supple CV is S1-S2 regular rate and rhythm Respiratory bilateral clear GI positive bowel sound Extremity no edema EVS TECH no motor deficit Medications Current Medications Medications Dose Ordered Sig/Finn Route Start Time Stop Time Status Last Admin Dose Admin Clonidine HCl 0.2 mg Q6HP PRN PO 11/07/25 20:45 Amlodipine Besylate 10 mg DAILY PO 11/08/25 10:00 11/09/25 08:05 10 MG Sodium Chloride 1,000 ml @ 60 mls/hr [id number] IV 11/07/25 20:45 11/09/25 08:04 60 MLS/HR Acetaminophen/ Hydrocodone Bitart 1 tab Q4HP PRN PO 11/07/25 20:45 11/08/25 09:13 1 TAB Ondansetron HCl 4 mg Q4HP PRN IV 11/07/25 20:45 Docusate Sodium 100 mg BIDPRN PRN PO 11/07/25 20:45 Nitroglycerin 0.4 mg Q5MINP PRN SL 11/07/25 21:15 Morphine Sulfate 2 mg Q30M PRN IV 11/07/25 21:15 Ibuprofen 600 mg Q6HP PRN PO 11/08/25 15:30 11/08/25 15:52 600 MG Chlordiazepoxide HCl 25 mg Q6HPRN PRN PO 11/08/25 15:30 11/09/25 08:13 25 MG Oseltamivir Phosphate 75 mg BID PO 11/09/25 10:00 11/13/25 10:01 11/09/25 08:05 75 MG Ketorolac Tromethamine 30 mg Q6HPRN PRN IV 11/08/25 17:45 11/13/25 17:44 11/09/25 14:52 30 MG Famotidine 20 mg Q12HR PO 11/08/25 22:00 11/09/25 08:05 20 MG Metoprolol Tartrate 25 mg BID PO 11/08/25 22:00 11/09/25 08:04 25 MG Laboratory Results Laboratory Tests 11/09/25 06:20 Chemistry Test 11/09/25 06:20 Calcium Level 8.3 mg/dL (8.7-10.4) L Coagulation Test 11/08/25 18:05 D-Dimer, Quantitative 0.54 mg/L FEU (0.0-0.49) H Microbiology Microbiology Date/Time Source Procedure Growth Status 11/08/25 14:28 Throat Nose/Throat Culture - Preliminary Resulted Assessment/Plan Assessment/Plan 49-year-old female with a known history of gastric sleeve, hypertension, noncompliance has not been taking hypertensive meds for last six months initially presented to the hospital with the chest pain and some cough found to have 1. Hypertensive urgency 2. Noncompliance 3. History of gastric sleeve surgery 4. Influenza B positive -continue current hypertensive meds, respiratory isolation, continue Tamiflu flu, discharge plan once patient is is improved. Plan discussed with: Patient Problem List: (1) Hypertensive urgency (2) Cough (3) Chest pain (4) Viral syndrome Date of Service: Nov 09, 2025 Billing Provider: JAMES BOURNE MD Common Visit Codes: [id number] INP/OBS CARE(HIGH) JAMES BOURNE MD Nov 09, 2025 16:57
--- NOTE | 2025-11-09 23:39 | DVHPN2 ---
Subjective DOS: 11/09/2025 Patient seen and examined at bedside. Breathing comfortably on room air. Overnight events reviewed. Changes from previous H/P or p: No Changes Eyes: No Pain, No Vision change, No Conjunctivae inflammation, No Eyelid inflammation, No Other, No Redness ENT: No Ear pain, No Ear discharge, No Nose pain, No Nose discharge, No Nose congestion, No Mouth pain, No Mouth swelling; Throat pain, Throat swelling; No Other Cardiovascular: Chest Pain; No Palpitations, No Orthopnea, No Paroxysmal Noc. Dyspnea, No Edema, No Lt Headedness, No Other Respiratory: No Cough, No Dry, No Shortness of breath, No SOB with excertion, No Wheezing, No Hemoptysis, No Pleuritic Pain, No Sputum, No Other Gastrointestinal: No Nausea, No Vomiting, No Abdominal Pain, No Diarrhea, No Constipation, No Melena, No Hematochezia, No Other Genitourinary: No Dysuria, No Frequency, No Incontinence, No Hematuria, No Retention, No Other Musculoskeletal: No other, No neck pain, No shoulder pain, No arm pain, No back pain, No hand pain, No leg pain, No foot pain Skin: No Rash, No Lesions, No Jaundice, No Bruising, No Other Objective Vitals Vital Signs Date Time Temp Pulse Resp B/P (MAP) Pulse Ox O2 Delivery O2 Flow Rate FiO2 11/09/25 21:01 96 153/96 11/09/25 21:00 97.8 18 100 97.8 11/09/25 20:00 Room Air* 0 21 Intake/Output Intake and Output 11/09/25 07:00 Intake Total 1875 ml Balance 1875 ml Intake Oral 1575 ml IV Total 300 ml # Voids 7 # Bowel Movements 3 Exam Gen.: Patient lying in bed in no apparent distress. Breathing on room air. Head: Normocephalic, atraumatic. Eyes: EOMI/PERRLA. Ears: Normal hearing. Normal anatomy. Neck/trachea: Trachea midline, supple. Nose: Normal external anatomy. Mouth: Moist mucous membranes. Chest: Decreased air entry bilaterally. No wheezing or rhonchi. Cardiovascular: Positive S1, positive S2. Regular rate and rhythm. Abdomen: Positive bowel sounds in all 4 quadrants. Soft, non-tender, non- distended. : Deferred. Rectal: Deferred. Skin: Warm, dry. Intact. Extremities: 2+ radial pulses bilaterally. No lower extremity edema. Neuro: Awake, alert, oriented x3. No gross motor or sensory deficits. Cranial nerves II through XII intact. Gait not assessed. Medications Current Medications Medications Dose Ordered Sig/Finn Route Start Time Stop Time Status Last Admin Dose Admin Clonidine HCl 0.2 mg Q6HP PRN PO 11/07/25 20:45 Amlodipine Besylate 10 mg DAILY PO 11/08/25 10:00 11/09/25 08:05 10 MG Sodium Chloride 1,000 ml @ 60 mls/hr [id number] IV 11/07/25 20:45 11/09/25 08:04 60 MLS/HR Acetaminophen/ Hydrocodone Bitart 1 tab Q4HP PRN PO 11/07/25 20:45 11/08/25 09:13 1 TAB Ondansetron HCl 4 mg Q4HP PRN IV 11/07/25 20:45 Docusate Sodium 100 mg BIDPRN PRN PO 11/07/25 20:45 Nitroglycerin 0.4 mg Q5MINP PRN SL 11/07/25 21:15 Morphine Sulfate 2 mg Q30M PRN IV 11/07/25 21:15 Ibuprofen 600 mg Q6HP PRN PO 11/08/25 15:30 11/08/25 15:52 600 MG Chlordiazepoxide HCl 25 mg Q6HPRN PRN PO 11/08/25 15:30 11/09/25 21:08 25 MG Oseltamivir Phosphate 75 mg BID PO 11/09/25 10:00 11/13/25 10:01 11/09/25 21:01 75 MG Ketorolac Tromethamine 30 mg Q6HPRN PRN IV 11/08/25 17:45 11/13/25 17:44 11/09/25 20:59 30 MG Famotidine 20 mg Q12HR PO 11/08/25 22:00 11/09/25 20:59 20 MG Metoprolol Tartrate 25 mg BID PO 11/08/25 22:00 11/09/25 21:01 25 MG Laboratory Results Laboratory Tests 11/09/25 06:20 Chemistry Test 11/09/25 06:20 Calcium Level 8.3 mg/dL (8.7-10.4) L Microbiology Microbiology Date/Time Source Procedure Growth Status 11/08/25 14:28 Throat Nose/Throat Culture - Preliminary Resulted Assessment/Plan Assessment/Plan Impression: Influenza B Hypertensive urgency Acute coronary syndrome Elevated D-dimer; rule out PE Generalized weakness Obesity Events: Breathing on room air Supplemental oxygen PRN No acute overnight events. Patient c/o sore throat. CT angio shows no definite evidence of pulmonary embolism. Continue Tamiflu course BP control - antihypertensives (patient noncompliant with HTN meds) Pain control Avoid oversedation Pepcid for GI ppx Labs and imaging reviewed. Rest of plan as noted below. Plan: Supplemental oxygen PRN Titrate to keep O2 sats above 92%. Chest x-ray shows no acute opacities. Patient c/o chest pain- Cardiology recs appreciated. Elevated D-dimer - CTA ruled out pulmonary embolism. Tamiflu course for influenza Blood pressure control Pepcid BID for GI prophylaxis. Pain control Avoid oversedation Monitor renal function. Monitor electrolytes. Supplement as necessary. Monitor ins and outs. Monitor hemoglobin - stable at 10.5 g/dL Transfuse if less than 7.0 g/dL. Recommend diet and lifestyle modifications for weight reduction Obesity complicates all care GI/DVT prophylaxis. Prognosis: Poor given patient's multiple co-morbidities. Rest of plan per hospitalist and other consultants. Thank you, [employer] Saeed, for allowing me to participate in this patient's care. Further recommendations will depend on the patient's clinical course. Please do not hesitate to contact me if you have any questions or concerns. This medical document was created using an electronic medical record system with [employer] dictation system. Although these documentations are being carefully reviewed, there may still be some phonetic and typographical changes. The errors are purely typographical, due to imperfection on the software program, and do not reflect any compromise in the patient's medical care. Plan discussed with: Patient, Other (RN) Visit Coding Pulmonary Billing Provider: EDITH CASTAÑEDA MD Date of Service if different f: Nov 09, 2025 Common Visit Codes: [id number] INP/OBS CARE(HIGH) EDITH CASTAÑEDA MD Nov 09, 2025 23:39
[2025-11-09] MEDS: ONDANSETRON HCL 4 MG/2 ML VIAL IV PRN (23:55)
[2025-11-10] VITALS (7 sets, daily range): BP systolic 116–143; BP diastolic 73–90; PULSE 80–91; RESP 14–20; TEMP 98–98.7; O2SAT 96–99
[2025-11-10] MEDS ORDERED: MET25T PO (17:52)
[2025-11-10] MEDS ORDERED: IBU600T PO (17:52)
[2025-11-10] MEDS ORDERED: TAMIFLU PO (17:52)
[2025-11-10] MEDS ORDERED: AML5T PO (17:52)
[2025-11-10] MEDS ORDERED: GABA-1250 PO (17:54)
--- NOTE | 2025-11-10 17:57 | DVHDS2 ---
Discharge Summary Date of Admission Nov 07, 2025 at 21:12 Date of Discharge: Nov 10, 2025 Labs/Diagnostic Data: Laboratory Results Test 11/09/25 06:20 11/08/25 18:05 11/08/25 14:28 11/08/25 05:52 White Blood Count 4.8 10^3/uL (4.4-10.8) Red Blood Count 3.83 10^6/uL (4.0-5.20) Hemoglobin 10.5 g/dL (12.2-16.2) Hematocrit 34.8 % (36.0-46.0) Mean Corpuscular Volume 90.8 fL (80.0-100.0) Mean Corpuscular Hemoglobin 27.3 pg (28.0-32.0) Mean Corpuscular Hemoglobin Concent 30.1 g/dL (32.0-36.0) Red Cell Distribution Width 16.5 % (11.8-14.3) Platelet Count 310 10^3/uL (140-450) Mean Platelet Volume 7.0 fL (6.9-10.8) Neutrophils (%) (Auto) 51.0 % (37.0-80.0) Lymphocytes (%) (Auto) 28.9 % (10.0-50.0) Monocytes (%) (Auto) 16.1 % (0.0-12.0) Eosinophils (%) (Auto) 3.1 % (0.0-7.0) Basophils (%) (Auto) 0.9 % (0.0-2.0) Neutrophils # (Auto) 2.5 10 ^3/uL (1.6-8.6) Lymphocytes # (Auto) 1.4 10 ^3/uL (0.4-5.4) Monocytes # (Auto) 0.8 10 ^3/uL (0-1.3) Eosinophils # (Auto) 0.1 10 ^3/uL (0-0.8) Basophils # (Auto) 0 10 ^3/uL (0-0.2) Nucleated Red Blood Cells 0.1 % Sodium Level 135 mmol/L (136-145) Potassium Level 4.0 mmol/L (3.5-5.1) Chloride Level 111 mmol/L (98-107) Carbon Dioxide Level 19 mmol/L (20-31) Anion Gap 5 (5-15) Blood Urea Nitrogen < 5 mg/dL (9-23) Creatinine 0.66 mg/dL (0.550-1.02) Glomerular Filtration Rate Calc 109 mL/min (>90) BUN/Creatinine Ratio 7.6 (10.0-20.0) Serum Glucose 91 mg/dL (74-106) Calcium Level 8.3 mg/dL (8.7-10.4) D-Dimer, Quantitative 0.54 mg/L FEU (0.0-0.49) Influenza Type A Antigen Negative (Negative) Influenza Type B Antigen Positive (Negative) SARS-CoV-2 Antigen (Rapid) Negative (NEGATIVE) Group A Streptococcus Rapid Negative Total Bilirubin 0.4 mg/dL (0.2-1.0) Aspartate Amino Transferase (AST) 25 U/L (13-40) Alanine Aminotransferase (ALT) 14 U/L (7-40) Alkaline Phosphatase 55 U/L (46-116) Total Protein 7.4 g/dL (5.7-8.2) Albumin 4.1 g/dL (3.2-4.8) Test 11/07/25 18:50 Troponin I High Sensitivity 6 ng/L (</=34) Other Laboratory Tests 11/09/25 06:20 Brief Hx & Hospital Course: 49-year-old female with a known history of gastric sleeve, hypertension, noncompliance has not been taking hypertensive meds for last six months initially presented to the hospital with the chest pain and some cough found to have hypertensive urgency as well as influenza B positive. Patient does have known history of chronic alcoholism. Alcohol cessation counseling has been discussed. Patient's blood pressure is better controlled. Patient is being discharged under stable condition. Condition at Discharge: Stable Final Diagnosis/Problems List 49-year-old female with a known history of gastric sleeve, hypertension, noncompliance has not been taking hypertensive meds for last six months initially presented to the hospital with the chest pain and some cough found to have 1. Hypertensive urgency, resolved 2. Noncompliance 3. History of gastric sleeve surgery 4. Influenza B positive 5. Chronic alcoholism, alcohol cessation counseling has been discussed, patient is requesting gabapentin for home. Discharge Disposition: Home SNF Discharge Will this Physician continue t: No Discharge Instruct/Medications Diet: Cardiac 2g Na,low cholest Activity: No Restrictions, As Tolerated Follow Up/Referral: Please follow up with the PCP in 1-2 weeks Medications: Medication as prescribed and reconciled. New Medications: Gabapentin (Gabapentin) 300 Mg Cap 300 MG PO BID, #14 CAP Amlodipine Besylate (Norvasc Tablet) 5 Mg Tb 10 MG PO DAILY, #60 TAB Ibuprofen Micronized (Motrin Tablet) 600 Mg Tb 600 MG PO Q6HP PRN, #14 TAB Take only p.r.n. for pain after meals. Metoprolol Tartrate (Lopressor) 25 Mg Tb 25 MG PO BID, #60 TAB Oseltamivir Phosphate (Tamiflu) 75 Mg Cap 75 MG PO BID, #6 CAP Scheduled Amlodipine Besylate (Norvasc Tablet), 10 MG PO DAILY Gabapentin (Gabapentin), 300 MG PO BID Metoprolol Tartrate (Lopressor), 25 MG PO BID Oseltamivir Phosphate (Tamiflu), 75 MG PO BID Scheduled PRN Ibuprofen Micronized (Motrin Tablet), 600 MG PO Q6HP PRN Discharge Statement: "Patient was advised to return to the ER or call 911 if any headaches, dizziness, shortness of breath, chest pain, abdominal pain, bleeding, fevers, or worsening of medical condition. Patient was counseled about treatment plan, medications, possible side effects, patientverbalized understanding. All questions were answered to the best of my ability. This discharge took greater then 30 minutes in planning, reviewing documentation, counseling the patient, and discussing with other team members." ASSESSMENT ASSESSMENT Assessment 49-year-old female with a known history of gastric sleeve, hypertension, noncompliance has not been taking hypertensive meds for last six months initially presented to the hospital with the chest pain and some cough found to have 1. Hypertensive urgency, resolved 2. Noncompliance 3. History of gastric sleeve surgery 4. Influenza B positive 5. Chronic alcoholism, alcohol cessation counseling has been discussed, patient is requesting gabapentin for home. Date of Service: Nov 10, 2025 Billing Provider: JAMES BOURNE MD Common Visit Codes: [id number] DISCH DAY >30min JAMES BOURNE MD Nov 10, 2025 17:57
--- NOTE | 2025-11-10 22:59 | DVHPN2 ---
Subjective DOS: 11/10/2025 Patient seen and examined at bedside. Breathing comfortably on room air. Overnight events reviewed. Changes from previous H/P or p: No Changes Eyes: No Pain, No Vision change, No Conjunctivae inflammation, No Eyelid inflammation, No Other, No Redness ENT: No Ear pain, No Ear discharge, No Nose pain, No Nose discharge, No Nose congestion, No Mouth pain, No Mouth swelling; Throat pain, Throat swelling; No Other Cardiovascular: Chest Pain; No Palpitations, No Orthopnea, No Paroxysmal Noc. Dyspnea, No Edema, No Lt Headedness, No Other Respiratory: No Cough, No Dry, No Shortness of breath, No SOB with excertion, No Wheezing, No Hemoptysis, No Pleuritic Pain, No Sputum, No Other Gastrointestinal: No Nausea, No Vomiting, No Abdominal Pain, No Diarrhea, No Constipation, No Melena, No Hematochezia, No Other Genitourinary: No Dysuria, No Frequency, No Incontinence, No Hematuria, No Retention, No Other Musculoskeletal: No other, No neck pain, No shoulder pain, No arm pain, No back pain, No hand pain, No leg pain, No foot pain Skin: No Rash, No Lesions, No Jaundice, No Bruising, No Other Objective Vitals Vital Signs Date Time Temp Pulse Resp B/P (MAP) Pulse Ox O2 Delivery O2 Flow Rate FiO2 11/10/25 18:23 98.7 80 18 98 11/10/25 16:38 128/81 (97) 11/10/25 08:00 Room Air* 0 21 Intake/Output Intake and Output 11/10/25 07:00 Intake Total 1618 ml Balance 1618 ml Intake Oral 918 ml IV Total 700 ml # Voids 7 # Bowel Movements 1 Exam Gen.: Patient lying in bed in no apparent distress. Breathing on room air. Head: Normocephalic, atraumatic. Eyes: EOMI/PERRLA. Ears: Normal hearing. Normal anatomy. Neck/trachea: Trachea midline, supple. Nose: Normal external anatomy. Mouth: Moist mucous membranes. Chest: Decreased air entry bilaterally. No wheezing or rhonchi. Cardiovascular: Positive S1, positive S2. Regular rate and rhythm. Abdomen: Positive bowel sounds in all 4 quadrants. Soft, non-tender, non- distended. : Deferred. Rectal: Deferred. Skin: Warm, dry. Intact. Extremities: 2+ radial pulses bilaterally. No lower extremity edema. Neuro: Awake, alert, oriented x3. No gross motor or sensory deficits. Cranial nerves II through XII intact. Gait not assessed. Laboratory Results Laboratory Tests 11/09/25 06:20 Microbiology Microbiology Date/Time Source Procedure Growth Status 11/08/25 14:28 Throat Nose/Throat Culture - Final Complete Assessment/Plan Assessment/Plan Impression: Influenza B Hypertensive urgency Acute coronary syndrome Elevated D-dimer; rule out PE Generalized weakness Obesity Events: Breathing on room air Supplemental oxygen PRN No acute overnight events. CT angio shows no definite evidence of pulmonary embolism. Chest x-ray shows no acute opacities. Continue Tamiflu course Continue antibiotics Incentive spirometry BP control - antihypertensives (patient noncompliant with HTN meds) Pain control Avoid oversedation Pepcid for GI ppx Disposition planning Patient is stable for discharge from the pulmonary standpoint. Disposition per hospitalist. Labs and imaging reviewed. Rest of plan as noted below. Plan: Supplemental oxygen PRN Titrate to keep O2 sats above 92%. Patient c/o chest pain- Cardiology recs appreciated. Elevated D-dimer - CTA ruled out pulmonary embolism. Tamiflu course for influenza Blood pressure control Continue antibiotics Incentive spirometry Pepcid BID for GI prophylaxis. Pain control Avoid oversedation Monitor renal function. Monitor electrolytes. Supplement as necessary. Monitor ins and outs. Monitor hemoglobin - stable Transfuse if less than 7.0 g/dL. Recommend diet and lifestyle modifications for weight reduction Obesity complicates all care GI/DVT prophylaxis. Prognosis: Poor given patient's multiple co-morbidities. Rest of plan per hospitalist and other consultants. Thank you, ELIDA Tipton, for allowing me to participate in this patient's care. Further recommendations will depend on the patient's clinical course. Please do not hesitate to contact me if you have any questions or concerns. This medical document was created using an electronic medical record system with [employer] dictation system. Although these documentations are being carefully reviewed, there may still be some phonetic and typographical changes. The errors are purely typographical, due to imperfection on the software program, and do not reflect any compromise in the patient's medical care. Plan discussed with: Patient, Other (MELISSA Joel) Visit Coding Pulmonary Billing Provider: EDITH CASTAÑEDA MD Date of Service if different f: Nov 10, 2025 Common Visit Codes: [id number] INP/OBS CARE(HIGH) EDITH CASTAÑEDA MD Nov 10, 2025 22:59
--- NOTE | 2025-11-11 09:52 | ECG ---
[facility] Test Date: 2025-11-07 Test Time: 16:35:56 Pat Name: KATY MIKE Department: ED Room: 0208T A Gender: F [facility] Technician: denny : 1975 Requested By: EMERGENCY EMERGENCY Order Number: [id number] Reading MD: Familia Lopez Measurements Intervals [place] Rate: 93 P: 60 VA: 89 QRS: 58 QRSD: 74 T: -12 QT: 351 QTc: 437 Interpretive Statements Sinus rhythm Short VA interval Low voltage, precordial leads Borderline repolarization abnormality Electronically Signed On 11-12-2025 17:25:54 PST by Familia Lopez Please click the below link to view image of tracing.
== END 2025-11-10 18:55 | disposition home or self-care (01) | DRG 199 ==
LOC: ER 16:22 → OVERFLOW 21:12 → TELE-CENTR 21:13
PROVIDERS: ADMIT Internal Medicine; ATTEND Internal Medicine
DX: I16.0 Hypertensive urgency (principal); I24.9 Acute ischemic heart disease, unspecified; J10.1 Influenza due to other identified influenza virus with other respiratory manifestations; E66.9 Obesity, unspecified; F10.20 Alcohol dependence, uncomplicated; I10 Essential (primary) hypertension; Z20.822 Contact with and (suspected) exposure to COVID-19; Y90.9 Presence of alcohol in blood, level not specified; Z90.49 Acquired absence of other specified parts of digestive tract; Z82.49 Family history of ischemic heart disease and other diseases of the circulatory system; Z83.3 Family history of diabetes mellitus; Z80.3 Family history of malignant neoplasm of breast; Z91.014 Allergy to mammalian meats; Z98.84 Bariatric surgery status; Z91.148 Patient's other noncompliance with medication regimen for other reason; Z78.9 Other specified health status; Z68.39 Body mass index [BMI] 39.0-39.9, adult
CPT/HCPCS: 36415; 70450; 71045; 71275; 80048; 80053; 84484; 85025; 85379; 87070; 87426; 87804; 87880; 93005; 96374; G0378; J1885; J2405